=== PATIENT | female | born 1995 | race Caucasian/White ===

== ENCOUNTER → 2017-08-04 08:40 | Outpatient (CLI) | payer SELFPAY ==
--- NOTE | 2017-08-04 08:52 | RAD_ITS ---
STUDY: X-RAY - ESOPHAGUS (BARIUM SWALLOW) WITH FLUOROSCOPY REASON FOR EXAM: Female, 22 years old. Midesophageal tightness and pain. TECHNIQUE: 14 view(s) of the esophagus were obtained following swallowing of barium. FLUOROSCOPY TIME (if supplied): (0:27) minutes/seconds COMPARISON: None. FINDINGS: There is no demonstrated esophageal foreign body. There is no demonstrated stricture or mucosal abnormality. Normal gastroesophageal junction, without a demonstrated hiatal hernia. The patient ingested a 12 mm tablet of barium without any difficulty. Normal visualized aortic arch and descending thoracic aorta. Normal visualized pulmonary parenchyma. Normal visualized osseous structures of the thorax. RAD/Esophagus Only IMPRESSION: Normal plain film x-ray examination (barium swallow) of the esophagus. Electronically Signed: Remy Koenig MD at 9:46 EDT Tel [phone], Service support ,
== END ==
PROVIDERS: Visit Provider Otolaryngology
DX: R13.10 Dysphagia, unspecified (principal)
CPT/HCPCS: 74220

== ENCOUNTER → 2018-07-03 | Outpatient (CLI) | payer OTHER, SELFPAY ==
[2018-07-03 13:58] VITALS: BMI 21.0
[2018-07-03 15:18] LABS: Absolute Lymphocyte Count 1.81 X10^3/ul (0.83-4.51); Absolute Neutrophil Count 4.2 X10^3/uL (2.0-7.7); Eosinophil# 0.01 X10^3/uL; Eosinophils% 0.2 % (0-5); Hemoglobin 12.2 g/dl (12.0-15.0); Lymphocyte # 1.81 X10^3/ul (4.0); Lymphocyte % 27.4 % (19-41); Mean Corp Hgb Conc 34.9 g/gl (32-36); Mean Corpuscular Hgb 31.7 pg (27.0-32.0); Mean Corpuscular Volume 90.9 fL (81-99); Mean Platelet Vol. 10.2 fl (6.2-12.0); Monocyte# 0.58 X10^3/uL; Monocyte% 8.8 % (0-10); Neutrophil # 4.19 X10^3/uL (2.7-7.7); Neutrophil % 63.4 % (47-70); Platelet Count 215 K/mm3 (150-450); RBC Distribution Width CV 12.5 % (11.6-14.6); RBC Distribution Width SD 41.1 fl (35.1-43.9); Red Blood Count 3.85 M/mm3 (4.2-5.4); White Blood Count 6.6 K/mm3 (4.4-11.0)
[2018-07-03 15:33] LABS: POSITIVE COUNT NO; POSITIVE DIFFERENTIAL NO; POSITIVE MORPHOLOGY NO
[2018-07-03 16:30] LABS: HIV - WCH Non-Reactive (Nonreactive); Rubella IgG 152.1 IU/mL
[2018-07-03 20:35] LABS: Chlamydia Trachomatis by PCR Negative (Negative); Neisserai gonorrhoeae by PCR Negative (Negative); Probe Check PASS; Sample Adequacy Control PASS; Specimen Processing Control PASS
[2018-07-05 15:59] LABS: HEPATITIS B SURFACE AG Negative (Negative)
[2018-07-06 04:56] LABS: Rapid Plasmin Reagin (RPR) NONREACTIVE (NONREACTIVE)
[2018-07-06 11:29] LABS: HPV Reflexed? NOT INDICATED
== END | disposition home or self-care (01) ==
PROVIDERS: Nurse Practitioner Women's Health; Visit Provider Obstetrics & Gynecology
DX: Z34.90 Encounter for supervision of normal pregnancy, unspecified, unspecified trimester (principal)
CPT/HCPCS: 36415; 85025; 86592; 86703; 86762; 86850; 86900; 87086; 87340; 87491; 87591; 87624; 88175; G0145

== ENCOUNTER → 2018-09-03 | Outpatient (CLI) | payer OTHER, SELFPAY ==
[2018-08-07 08:50] VITALS: BMI 21.0
--- NOTE | 2018-09-03 13:35 | US_ITS ---
STUDY: SECOND AND THIRD TRIMESTER OBSTETRICAL ULTRASOUND REASON FOR EXAM: Female, 23 years old. Routine survey. LMP: April 10, 2018. TECHNIQUE: Transabdominal TECHNICAL QUALITY: Adequate. PRIOR ULTRASOUND: None. FINDINGS: There is a single intrauterine fetus. The fetus is in a cephalic presentation. There is demonstrated cardiac activity with a heart rate of 147 bpm. There is a normal amniotic fluid volume. The largest amniotic fluid pocket measures 9.7 cm x 2.9 cm. The amniotic fluid index (JESUS) is within normal limits. The placenta is posterior in location and is not low lying. There are Grade 0 placental changes. The cervix measures 3.5 cm in length. The bilateral adnexal regions are normal. BIOMETRY: BPD: 4.65 cm: 20 weeks, 1 days HC: 17.83 cm: 20 weeks, 3 days AC: 15.74 cm: 21 weeks, 0 days FL: 3.32 cm: 20 weeks, 3 days CI: 75% FL/BPD: 71% FL/HC: FL/AC: 21% HC/AC: 1.13 age by current US: 20 weeks, 4 days. GARRICK by current US: January 17, 2019. Estimated weight: 365 grams, +/- 53 grams, 31 %. Age by LMP: 20 weeks, 6 days. GARRICK by LMP: January 15, 2019. ANATOMY: Gender: Male Cranium: Normal lateral ventricles. Normal choroid plexus. Normal cerebellum. Normal cisterna magna. Normal face, nose and lips. Chest: Normal 4-chamber heart. Abdomen/Pelvis: Normal diaphragm. Normal stomach. Normal abdominal wall. Normal cord insertion. Normal 3 vessel cord. Normal kidneys. Normal bladder. Spine: Normal cervical spine. Normal thoracic spine. Normal lumbar spine. Normal sacrum. Extremities: Normal bilateral upper extremities. Normal bilateral lower extremities. US/OB Anatomy Scan IMPRESSION: Single live intrauterine gestation with a mean gestational age of 20 weeks and 4 days. Electronically Signed: Remy Koenig, at 11:43 EDT , Service support ,
== END | disposition home or self-care (01) ==
PROVIDERS: Referring Provider Obstetrics & Gynecology; Visit Provider Obstetrics & Gynecology
DX: Z34.90 Encounter for supervision of normal pregnancy, unspecified, unspecified trimester (principal)
CPT/HCPCS: 76805

== ENCOUNTER → 2018-10-24 | Outpatient (CLI) | payer OTHER, SELFPAY ==
[2018-10-24 08:51] VITALS: BMI 21.0
[2018-10-24 09:41] LABS: Absolute Neutrophil Count 6.2 X10^3/uL (2.0-7.7); Basophil# 0.02 X10^3/uL; Basophil% 0.2 % (0-1); Eosinophil# 0.04 X10^3/uL; Eosinophils% 0.4 % (0-5); Hematocrit 32.7 % (37-47); Hemoglobin 11.1 g/dL (12.0-15.0); Lymphocyte % 21.1 % (19-41); Mean Corp Hgb Conc 33.9 g/dL (32-36); Mean Corpuscular Hgb 33.2 pg (27.0-32.0); Mean Corpuscular Volume 97.9 fL (81-99); Mean Platelet Vol. 9.5 fl (6.2-12.0); Monocyte% 8.9 % (0-10); NRBC Flagged by Analyzer 0 % (0-5); Neutrophil # 6.17 X10^3/uL (2.7-7.7); Neutrophil % 68.7 % (47-70); Platelet Count 195 K/mm3 (150-450); RBC Distribution Width CV 12.3 % (11.6-14.6); RBC Distribution Width SD 44.5 fl (35.1-43.9); Red Blood Count 3.34 M/mm3 (4.2-5.4)
[2018-10-24 09:52] LABS: Glucose Challenge Gest 1H 50g 90 mg/dL (70-140)
== END | disposition home or self-care (01) ==
LOC: PAVLAB 08:56
PROVIDERS: Nurse Practitioner Women's Health; Referring Provider Obstetrics & Gynecology; Visit Provider Obstetrics & Gynecology
DX: Z34.00 Encounter for supervision of normal first pregnancy, unspecified trimester (principal)
CPT/HCPCS: 36415; 82950; 85025

== ENCOUNTER → 2018-12-19 14:29 | Outpatient (CLI) | payer OTHER, SELFPAY ==
[2018-12-19 12:31] VITALS: BMI 26.2
== END ==
PROVIDERS: Family Provider Family Medicine; PCP Family Medicine; Visit Provider Obstetrics & Gynecology
DX: Z34.93 Encounter for supervision of normal pregnancy, unspecified, third trimester (principal); Z3A.36 36 weeks gestation of pregnancy
CPT/HCPCS: 87081

== ENCOUNTER 2019-01-13 17:45 | Inpatient (IN) | payer SELFPAY ==
[2018-11-27 09:44] VITALS: BMI 21.0
[2019-01-10 11:21] VITALS: BMI 26.2
[2019-01-13 17:17] VITALS: BMI 27.8
[2019-01-13 17:45] LABS: ROM Internal Control Test YES-OK TO RESULT pt. (Internal QC)
[2019-01-13 17:47] LABS: ROM Patient Test POSITIVE (Negative)
[2019-01-13] MEDS: Lactated Ringers 1,000 ML 50 ML IV (18:14)
[2019-01-13] MEDS: Oxytocin 30 units/NS 500 ml 30 UNITS/500 ML IV.SOLN IV (18:36)
[2019-01-13 18:52] LABS: Absolute Lymphocyte Count 3.06 X10^3/uL (0.83-4.51); Absolute Neutrophil Count 5.3 X10^3/uL (2.0-7.7); Basophil# 0.02 X10^3/uL; Basophil% 0.2 % (0-1); Eosinophil# 0.03 X10^3/uL; Eosinophils% 0.3 % (0-5); Hematocrit 36.8 % (37-47); Hemoglobin 12.3 g/dL (12.0-15.0); Lymphocyte # 3.06 X10^3/ul (4.0); Lymphocyte % 32.8 % (19-41); Mean Corp Hgb Conc 33.4 g/dL (32-36); Mean Corpuscular Hgb 31.5 pg (27.0-32.0); Mean Corpuscular Volume 94.1 fL (81-99); Mean Platelet Vol. 10.8 fl (6.2-12.0); Monocyte# 0.85 X10^3/uL; Monocyte% 9.1 % (0-10); NRBC Flagged by Analyzer 0 % (0-5); Neutrophil # 5.32 X10^3/uL (2.7-7.7); Platelet Count 274 K/mm3 (150-450); RBC Distribution Width CV 13.2 % (11.6-14.6); Red Blood Count 3.91 M/mm3 (4.2-5.4); White Blood Count 9.3 K/mm3 (4.4-11.0)
[2019-01-13] MEDS: Lactated Ringers 500 ML 999 ML IV (21:28)
[2019-01-13] MEDS: fentaNYL-bupivacaine (epidural) 100 ML BAG EPIDURAL (22:12)
[2019-01-14] MEDS: Lactated Ringers 1,000 ML 200 ML IV (01:42)
[2019-01-14] MEDS: fentaNYL-bupivacaine (epidural) 100 ML BAG EPIDURAL (02:54)
[2019-01-14] MEDS: Oxytocin 30 units/NS 500 ml 30 UNITS/500 ML IV.SOLN 334 UNITS IV (06:21)
--- NOTE | 2019-01-14 07:31 | HP.PCM_ITS ---
- Problem List (1) Family history of cleft lip Status: Acute (2) Family history of clubfoot Status: Acute (3) Status: Acute Qualifiers: Comment: Declines carrier and genetic and ntd screen. nl anatomy. (4) Supervision of normal first Status: Acute Qualifiers: Comment: PRR GARRICK 01/15/19 boy Dominick Spouse: Natalie History Date of Admission: 01/13/19 Final GARRICK: 01/15/19 Gestational age: 39 Weeks and 6 Days History of this : This is a 23 year-old, , at 39 weeks gestational age presents with SROM clear fluid for over 24 hours with minimal contractions. no vb good fm Allergies No Known Allergies Allergy (Verified 01/10/19 11:21) Home Medications: Home Medications vitamin#30 30 mg iron-10 mg iron-folic acid 1 mg-omg3 capsule 1 cap PO DAILY cap 11/27/18 Smoking Status: Never smoker Alcohol: None Number of Fetus(es): 1 NST - FHR Rate Baby A Baseline: 140 Variability:: Moderate Decelerations:: None NST Reactive:: Yes FHR Category:: Category I Uterine Activity:: irregular History Past Pregnancies: Past Pregnancies Delivery Date Name GA/Weeks Outcome Route Weight Gender Labor Length Anesthesia Delivery Location Provider FOB Labs: Mom's Labs & Results 01/13/19 01/13/19 01/13/19 17:15 18:14 18:14 WBC 9.3 RBC 3.91 L Hgb 12.3 Hct 36.8 L MCV 94.1 MCH 31.5 MCHC 33.4 RDW Std Deviation 45.0 H RDW Coeff of Jose 13.2 Plt Count 274 MPV 10.8 Immature Gran % (Auto) 0.600 Neut % (Auto) 57.0 Lymph % (Auto) 32.8 Wallace % (Auto) 9.1 Eos % (Auto) 0.3 Baso % (Auto) 0.2 Absolute Neuts (auto) 5.3 Absolute Lymphs (auto) 3.06 Nucleated RBC % 0 Vag Amniotic Fld Detect POSITIVE H Blood Type O POSITIVE Antibody Screen NEGATIVE Course Did the patient receive Yes care? Labs Blood Type: O RH: POSITIVE RPR/VDRL/Syphilis Nonreactive Rubella status Immune HbSAg Negative Date Done: 07/03/18 Chlamydia Negative Gonorrhea Negative HIV/AIDS Non-Reactive Group B Strep: Negative Current Obstetrical History Gestational Diabetes No Incompetent Cervix No Infertility No IUGR No Macrosomia No Hypertension/Pre-eclampsia No Placenta Previa/Abruption No PTL/PROM No Uterine anomaly No Oligohydramnios No Polyhydramnios No Multiple gestation No Past Medical History Asthma No Diabetes No Hypertension No Heart disease No Mitral valve prolapse No Neurologic/Seizure disorder/ No Migraines Kidney disease No Liver disease No Varicosities No Clotting disorders/Hx of DVT No Thyroid Dysfunction No Other medical diseases No Psychiatric disorders No Major trauma No Abnormal PAP smear No Sleep apnea No Mammogram in the last 2 years No Social History Marital Status: Alleged father natalie Hx Smoking No Smoking Status Never smoker Expected Delivery Method: Spontaneous Vaginal Review of Systems Constitutional: Denies: Fever, Malaise Eyes: Denies: Blurred vision, Vision Change HEENT: Denies: Head Aches, Visual Changes Cardiovascular: Denies: Chest Pain, Palpitations Respiratory: Denies: Cough, Shortness of Breath, Wheezing Gastrointestinal: Denies: Abdominal Pain, Diarrhea, Nausea, Vomiting Genitourinary: Denies: Dysuria, Hematuria Musculoskeletal: Denies: Joint Pain, Muscle pain Skin: Denies: Lesions, Rash Neurological: Denies: Blurred vision, Focal weakness, Headaches Psychiatric: Denies: Anxiety, Depression Endocrine: Denies: Heat/ Cold Intolerance Hematologic/ Lymphatic: Denies: Easy Bruising, Easy Bleeding Physical Exam General: Alert, Cooperative, No apparent distress HEENT: Atraumatic, Normocephalic. Negative for: Thyromegaly, Lymphadenopathy Cardiovascular: Regular rate Lungs: Normal air movement Abdomen: Soft, Non Tender, Gravid Neurological: Deep Tendon Reflexes 2+/4 and Symmetrical, Neuro grossly intact. Negative for: Clonus [employer]IVE: Normal external genitalia. Negative for: Vulvar lesions Estimated gestational size: Appropriate for gestational size Presentation: Cephalic Assessment/Plan All Active Problems (Last Reviewed 01/10/19 @ 11:21 by Sharon Hunter) Family history of cleft lip (Acute) Family history of clubfoot (Acute) (Acute) Supervision of normal first (Acute) This is a 23 year-old, ] at 39 weeks gestational age presents with PROM plan pit augmentation epi if desired no antibiotics unless signs of chorioamnionitis present. gbs neg
[2019-01-14] MEDS: Naproxen 250 MG Tablet 500 MG PO ×2 (08:16→19:35)
[2019-01-14 12:45] VITALS: BP 111/62; PULSE 92; RESP 16; TEMP 36.6
[2019-01-14] MEDS: Acetaminophen 500 MG Tablet 1000 MG PO (14:25)
[2019-01-14 16:54] VITALS: BP 109/69; PULSE 88; RESP 16; TEMP 36.9
[2019-01-14 19:37] VITALS: BP 112/61; PULSE 94; RESP 18; TEMP 36.9; O2SAT 97
[2019-01-14 23:36] VITALS: BP 107/63; PULSE 80; RESP 18; TEMP 36.6
[2019-01-14] MEDS: Dibucaine 30 GM Tube 1 APPLIC TOPICAL (23:42)
[2019-01-15 03:27] VITALS: BP 112/64; PULSE 82; RESP 16; TEMP 36.8
--- NOTE | 2019-01-15 05:21 | PCM.OPRPT ---
Problem List (1) Family history of cleft lip Status: Acute (2) Family history of clubfoot Status: Acute (3) Status: Acute Qualifiers: Comment: Declines carrier and genetic and ntd screen. nl anatomy. (4) Supervision of normal first Status: Acute Qualifiers: Comment: PRR GARRICK 01/15/19 [place] Spouse: Jonas Vaginal Delivery Maternal Presentation: Active Labor, Spontaneous Rupture of Membranes 39 srom clear fluid Method of Induction: Pitocin Amniotic Membrane Rupture Type: Spontaneous Amniotic Fluid Description: Clear Final GARRICK: 01/14/19 Gestational age: 39w6d Date of Procedure: 01/15/19 Pre-Operative Diagnosis: ial recurrent variables Post-Operative Diagnosis: same Surgery/ Procedure Performed: Vacuum Assisted Vaginal Delivery Type of Anesthesia: Epidural Description of Procedure: Vacuum was applied and the +3 station and the head was delivered easily with gentle guidance using the vacuum and delivered atraumatically followed by the anterior and posterior shoulders the rest the infant delivered was placed on maternal abdomen. Delayed cord clamping was employed and then the cord was clamped and cut. Placenta delivered spontaneously immediately following. No significant lacerations were noted. Presentation: HOMA Placental Delivery Description: Spontaneous Placenta Disposition: [facility] Cord Vessel Description: 3 Vessels Cord Entanglement: None Estimated Blood Loss: 200 Infant A gender: Male Episiotomy Description: None Laceration: None Medications given after delivery: IV Pitocin Complications: None Multi Select Codes - Urinary/Genital Urinary/Genital CPT Codes: 09516 Vaginal Delivery global pkg - vacuum delivery
[2019-01-15] MEDS: Naproxen 250 MG Tablet 500 MG PO (06:56)
--- NOTE | 2019-01-15 07:40 | PCM.PN.OB ---
Subjective: doing well no complaints pain controlled no CP SOB N V ambulating well tolerating po lochia moderate, going well - Physical Exam Vitals/I&O's: Vital Signs Temp Pulse Resp BP Pulse Ox 98.3 F 82 16 112/64 97 01/15/19 03:27 01/15/19 03:27 01/15/19 03:27 01/15/19 03:27 01/14/19 19:37 Oxygen Delivery Method Room Air Weight: 152 lb Body Mass Index (BMI) 27.8 Intake and Output for Last 24 Hours 01/13/19 01/14/19 01/15/19 23:59 23:59 23:59 Intake Total 779.17 / 779.17 2210.64 / 2210.64 Output Total 1500 / 1500 Balance 779.17 / 779.17 710.64 / 710.64 General: Alert, Oriented x3 Abdomen: Soft, Non Tender, Non-Distended, - - FF below U Current Medications Acetaminophen (Tylenol) 1,000 mg PO Q8H PRN PRN PRN Reason: Pain Score 1-310 Last Admin: 01/14/19 14:25 Dose: 1,000 mg Documented by: Bisacodyl (Dulcolax) 10 mg RECTAL UD PRN PRN Reason: If no BM Dibucaine (Dibucaine) 1 applic TOPICAL TID PRN PRN; Protocol PRN Reason: Discomfort Last Admin: 01/14/19 23:42 Dose: 1 applic Documented by: Hydrocortisone (Hytone) 1 applic TOPICAL TID PRN PRN; Protocol PRN Reason: Discomfort Methylergonovine Maleate (Methergine) 0.2 mg IM X1 PRN PRN Reason: Excess bleeding/uterine atony Naproxen (Naprosyn) 500 mg PO Q8H PRN PRN PRN Reason: Pain Score 1-3/10 Last Admin: 01/15/19 06:56 Dose: 500 mg Documented by: Ondansetron HCl (Zofran) 4 mg IV Q4H PRN PRN PRN Reason: Nausea Oxycodone HCl (Oxyir) 5 - 10 mg PO Q4H PRN PRN PRN Reason: Pain Score 4-10/10 Senna/Docusate Sodium (Senokot-S, Cynthia-Colace) 1 - 2 tablet PO DAILY PRN PRN PRN Reason: Constipation Simethicone (Mylicon) 80 mg PO PCHS PRN PRN Reason: Indigestion/Stomach pain Sodium Chloride () 5 - 15 ml IV UD PRN PRN Reason: SALINE FLUSH Medical Necessity - Tobacco Use Smoking Status: Never smoker Assessment/Plan All Active Problems (Last Reviewed 01/10/19 @ 11:21 by Sharon Hunter) Family history of cleft lip (Acute) Family history of clubfoot (Acute) (Acute) Supervision of normal first (Acute) s/p PPD # 1 1. routine post delivery care 2. breast feeding- support given 3. rh positive 4. rubella immune 5. Enc stool softener 6. home today
--- NOTE | 2019-01-15 07:42 | DCINST_ITS ---
Additional Instructions: If you experience any of the following, contact your healthcare provider. * Bleeding that soaks a pad every hour for 2 hours * Fever 100.4 or higher * Unrelieved incision or abdominal pain * Swelling, redness, discharge or bleeding from your incision or episiotomy site * Your incision begins to separate * Problems urinating (including inability to urinate or burning while urinating). * Visual changes * Severe headache * Flu-like symptoms * Pain or redness in one of both of your breasts * Pain, warmth, tenderness or swelling in your legs, especially the calf area * Frequent nausea and vomiting * Symptoms of depression or anxiety If you experience any of the following, call 911 or go to the nearest Emergency Room. * Chest pain * Problems breathing * Seizure activity * Partial or complete paralysis of a body part, slurred speech, weakness or drooping of the face, or a sudden inability to walk or hold your balance Allergies/Adverse Reactions: Allergies No Known Allergies Allergy (Verified 01/10/19 11:21) Medications to take at Discharge vitamin#30 30 mg iron-10 mg iron-folic acid 1 mg-omg3 capsule 1 cap PO DAILY cap 11/27/18 Primary Care Physician: Paul Muñoz MD [Primary Care Provider] - Test Results: Test results from this visit will be discussed in further detail at your follow- up appointment, if applicable.
--- NOTE | 2019-01-15 07:42 | PCM.DCVAG ---
Additional Instructions: If you experience any of the following, contact your healthcare provider. Bleeding that soaks a pad every hour for 2 hours Fever 100.4 or higher Unrelieved incision or abdominal pain Swelling, redness, discharge or bleeding from your incision or episiotomy site Your incision begins to separate Problems urinating (including inability to urinate or burning while urinating). Visual changes Severe headache Flu-like symptoms Pain or redness in one of both of your breasts Pain, warmth, tenderness or swelling in your legs, especially the calf area Frequent nausea and vomiting Symptoms of depression or anxiety If you experience any of the following, call 911 or go to the nearest Emergency Room. Chest pain Problems breathing Seizure activity Partial or complete paralysis of a body part, slurred speech, weakness or drooping of the face, or a sudden inability to walk or hold your balance Allergies/Adverse Reactions: Allergies No Known Allergies Allergy (Verified 01/10/19 11:21) Medications to take at Discharge vitamin#30 30 mg iron-10 mg iron-folic acid 1 mg-omg3 capsule 1 cap PO DAILY cap 11/27/18 Primary Care Physician: Paul Muñoz MD [Primary Care Provider] - Test Results: Test results from this visit will be discussed in further detail at your follow-up appointment, if applicable.
[2019-01-15 08:00] VITALS: BP 110/49; PULSE 73; RESP 18; TEMP 36.4
[2019-01-15] MEDS: Senna/Docusate Sodium 1 Tablet PO (11:07)
== END 2019-01-15 13:45 | disposition home or self-care (01) | DRG 807 ==
LOC: WP 17:54 → WPOUT 17:54
PROVIDERS: Admitting Provider Obstetrics & Gynecology; Family Provider Family Medicine; PCP Family Medicine; Visit Provider Obstetrics & Gynecology
DX: O42.12 Full-term premature rupture of membranes, onset of labor more than 24 hours following rupture (principal); Z37.0 Single live birth; Z3A.39 39 weeks gestation of pregnancy
CPT/HCPCS: 59025; 59050; 84112; 85025; 86850; 86900; 86901; 99218; J7120; G0378

== ENCOUNTER → 2020-06-11 15:00 | Outpatient (CLI) | payer OTHER, SELFPAY ==
[2020-06-11 14:20] VITALS: BMI 24.7
[2020-06-11 15:20] LABS: Absolute Lymphocyte Count 2.01 X10^3/uL (0.83-4.51); Absolute Neutrophil Count 4.8 X10^3/uL (2.0-7.7); Basophil# 0.02 X10^3/uL; Basophil% 0.3 % (0-1); Eosinophil# 0.03 X10^3/uL; Eosinophils% 0.4 % (0-5); Hematocrit 36.6 % (37-47); Hemoglobin 12.8 g/dL (12.0-15.0); Lymphocyte # 2.01 X10^3/ul (4.0); Lymphocyte % 27.3 % (19-41); Mean Corpuscular Hgb 32.4 pg (27.0-32.0); Mean Corpuscular Volume 92.7 fL (81-99); Mean Platelet Vol. 10.4 fl (6.2-12.0); Monocyte# 0.48 X10^3/uL; Monocyte% 6.5 % (0-10); NRBC Flagged by Analyzer 0 % (0-5); Neutrophil % 65.1 % (47-70); Platelet Count 233 K/mm3 (150-450); RBC Distribution Width CV 12.2 % (11.6-14.6); RBC Distribution Width SD 41.9 fl (35.1-43.9); Red Blood Count 3.95 M/mm3 (4.2-5.4); White Blood Count 7.4 K/mm3 (4.4-11.0)
[2020-06-12 08:57] LABS: Rubella IgG Reactive (Nonreactive)
== END ==
PROVIDERS: Referring Provider Obstetrics & Gynecology; Visit Provider Obstetrics & Gynecology
DX: Z34.82 Encounter for supervision of other normal pregnancy, second trimester (principal)
CPT/HCPCS: 36415; 85025; 86762; 86850; 86900; 86901; 87086; 87088

== ENCOUNTER → 2020-07-16 14:47 | Outpatient (CLI) | payer SELFPAY, OTHER ==
[2020-06-11 14:20] VITALS: BMI 24.7
[2020-07-16 13:49] VITALS: BMI 25.8
--- NOTE | 2020-07-16 14:49 | US_ITS ---
STUDY: SECOND AND THIRD TRIMESTER OBSTETRICAL ULTRASOUND REASON FOR EXAM: Female, 25 years old ANATOMY TECHNIQUE: Transabdominal and Transvaginal PRIOR ULTRASOUND: None. FINDINGS: There is a single intrauterine fetus. The fetus is in a variable presentation. There is demonstrated cardiac activity with a heart rate of 169 bpm. There is a normal amniotic fluid volume. The largest amniotic fluid pocket measures 3.8 cm. The placenta is anterior fundal and not low-lying. There are Grade 0 placental changes. There is a focal inward bulging along the posterior wall of the uterus. No connecting vessels are seen from the placenta to this area. The cervix measures 3.8 cm in length and closed. The bilateral adnexal regions are normal. BPD: 4.4 cm = 19 weeks, 2 day(s) HC: 17.2 cm = 19 weeks, 5 day(s) AC: 15.1 cm = 20 weeks, 2 day(s) FL: 2.9cm = 18 weeks, 6 day(s) EGA by ultrasound: 19 weeks 3 day(s) GARRICK by ultrasound: 12/07/2020 Estimated weight: 307 grams Weight percentile: 68% ANATOMY: Gender: Male Cranium: Normal lateral ventricles. Normal choroid plexus. Normal cerebellum. Normal cisterna magna. Normal face, nose and lips. Chest: Normal 4-chamber heart. Abdomen/Pelvis: Normal diaphragm. Normal stomach. Normal abdominal wall. Normal cord insertion. Normal 3 vessel cord. Normal kidneys. Normal bladder. Spine: Normal cervical spine. Normal thoracic spine. Normal lumbar spine. Normal sacrum. Extremities: Normal bilateral upper extremities. Normal bilateral lower extremities. US/OB Anatomy Scan IMPRESSION: Living intrauterine with estimated gestational age of 19 weeks and 3 days. There is a focal inward bulging along the posterior wall of the uterus. This most likely represents a myometrial contraction, less likely a succenturiate lobe. Recommend close attention on follow-up. Electronically Signed: Roberto Carlos Evans MD at 22:40 EDT Tel , Service support ,
[2020-07-16 19:10] LABS: Chlamydia Trachomatis by PCR Negative (Negative); Neisserai gonorrhoeae by PCR Negative (Negative); Probe Check PASS; Sample Adequacy Control PASS; Specimen Processing Control PASS
== END ==
PROVIDERS: Referring Provider Nurse Practitioner Women's Health; Visit Provider Nurse Practitioner Women's Health
DX: Z34.92 Encounter for supervision of normal pregnancy, unspecified, second trimester (principal)
CPT/HCPCS: 76805; 76817; 87491; 87591

== ENCOUNTER → 2020-08-20 13:32 | Outpatient (CLI) | payer OTHER, SELFPAY ==
[2020-07-21 09:42] VITALS: BMI 25.8
--- NOTE | 2020-08-20 13:34 | US_ITS ---
STUDY: SECOND AND THIRD TRIMESTER OBSTETRICAL ULTRASOUND - LIMITED REASON FOR EXAM: Female, 25 years old supervision of normal - possible bi-lobed placenta LMP: 03/01/2020 PRIOR ULTRASOUND: 07/16/2020 TECHNIQUE: Transabdominal TECHNICAL QUALITY: Adequate. FINDINGS: There is a single intrauterine fetus. The fetus is in a breech presentation. There is demonstrated cardiac activity with a heart rate of 153 bpm. There is a normal amniotic fluid volume. The largest amniotic fluid pocket measures 5.1 cm. The amniotic fluid index (JESUS) is cm. The placenta is anterior in location and is not low lying. There are Grade 0 placental changes. The cervix measures 4.2 cm in length. Age by LMP: 24 weeks, 4 days. GARRICK by LMP: 12/06/2020. US/OB Limited (No Biometrics) IMPRESSION: Living intrauterine of 24 weeks 4 days as described above. Normal anterior placenta. Electronically Signed: Papo Murray MD at 8:07 EDT Tel , Service support ,
== END ==
PROVIDERS: Referring Provider Obstetrics & Gynecology; Visit Provider Obstetrics & Gynecology
DX: O43.102 Malformation of placenta, unspecified, second trimester (principal); Z3A.24 24 weeks gestation of pregnancy
CPT/HCPCS: 76815

== ENCOUNTER → 2020-09-22 14:08 | Outpatient (CLI) | payer OTHER, SELFPAY ==
[2020-08-20 14:38] VITALS: BMI 26.5
[2020-09-22 14:21] LABS: Absolute Lymphocyte Count 2.03 X10^3/uL (0.83-4.51); Absolute Neutrophil Count 6.1 X10^3/uL (2.0-7.7); Basophil# 0.01 X10^3/uL; Basophil% 0.1 % (0-1); Eosinophil# 0.05 X10^3/uL; Eosinophils% 0.6 % (0-5); Hematocrit 32.6 % (37-47); Hemoglobin 10.8 g/dL (12.0-15.0); Lymphocyte # 2.03 X10^3/ul (0.83-4.51); Lymphocyte % 22.4 % (19-41); Mean Corp Hgb Conc 33.1 g/dL (32-36); Mean Corpuscular Hgb 30.9 pg (27.0-32.0); Mean Corpuscular Volume 93.4 fL (81-99); Mean Platelet Vol. 9.5 fl (6.2-12.0); Monocyte# 0.78 X10^3/uL; Monocyte% 8.6 % (0-10); NRBC Flagged by Analyzer 0 % (0-5); Neutrophil # 6.13 X10^3/uL (2.7-7.7); Neutrophil % 67.7 % (47-70); Platelet Count 234 K/mm3 (150-450); RBC Distribution Width CV 12.3 % (11.6-14.6); RBC Distribution Width SD 42.2 fl (35.1-43.9); Red Blood Count 3.49 M/mm3 (4.2-5.4); White Blood Count 9.1 K/mm3 (4.4-11.0)
[2020-09-22 14:30] LABS: Glucose Challenge Gest 1H 50g 90 mg/dL (70-140)
== END ==
PROVIDERS: Referring Provider Nurse Practitioner Women's Health; Visit Provider Nurse Practitioner Women's Health
DX: Z34.82 Encounter for supervision of other normal pregnancy, second trimester (principal); Z13.1 Encounter for screening for diabetes mellitus
CPT/HCPCS: 36415; 82950; 85025

== ENCOUNTER → 2020-11-12 | Outpatient (CLI) | payer OTHER, SELFPAY | END | disposition home or self-care (01) | LOC: LABSPEC 15:31 | PROVIDERS: Visit Provider Obstetrics & Gynecology | DX: Z34.82 Encounter for supervision of other normal pregnancy, second trimester (principal) | CPT/HCPCS: 87081 ==

== ENCOUNTER → 2020-11-19 | Outpatient (CLI) | payer OTHER, SELFPAY ==
[2020-11-19 16:08] LABS: ROM Internal Control Test YES-OK TO RESULT pt. (Internal QC); ROM Patient Test Negative (Negative)
== END | disposition home or self-care (01) ==
LOC: LABSPEC 15:17
PROVIDERS: Referring Provider Obstetrics & Gynecology; Visit Provider Obstetrics & Gynecology
DX: O26.899 Other specified pregnancy related conditions, unspecified trimester (principal); N89.8 Other specified noninflammatory disorders of vagina; Z3A.00 Weeks of gestation of pregnancy not specified
CPT/HCPCS: 84112

== ENCOUNTER 2020-11-28 10:50 | Outpatient (CLI) | payer OTHER, SELFPAY ==
[2020-11-28 11:06] VITALS: BP 113/74; PULSE 79; TEMP 36.2; O2SAT 99
[2020-11-28 11:20] VITALS: BMI 29.0
--- NOTE | 2020-12-02 08:36 | OB.TRI.PN ---
Progress Notes Date of Service: 11/28/20 Progress Note: Patient presents for triage evaluation secondary to contractions. Contractions decreased on arrival. Cervix unchanged from prior exam FHT: Moderate variability reactive no decelerations category I tracing [place]: q10 min Contractions Assessment and plan: Reactive NST, reassuring maternal and status patient discharged to home to follow-up at next scheduled visit. See problem list details for additional plan information. Charges/Coding Procedures Urinary/Genital 52xxx-59xxx: [id number] non-stress test Interp
== END 2020-11-28 12:03 | disposition home or self-care (01) ==
LOC: WPOUT 11:10 → WP 11:10
PROVIDERS: Referring Provider Obstetrics & Gynecology; Visit Provider Obstetrics & Gynecology
DX: O62.9 Abnormality of forces of labor, unspecified (principal); Z3A.00 Weeks of gestation of pregnancy not specified
CPT/HCPCS: 59025; 59050; 99218; G0378

== ENCOUNTER 2020-12-01 16:40 | Inpatient (IN) | payer SELFPAY, OTHER ==
[2020-12-01] VITALS (68 sets, daily range): BP systolic 77–151; BP diastolic 39–87; PULSE 58–97; TEMP 36.3–36.9; O2SAT 87–100; BMI 29.1
[2020-12-01 16:53] LABS: ROM Internal Control Test YES-OK TO RESULT pt. (Internal QC)
[2020-12-01 16:54] LABS: ROM Patient Test POSITIVE (Negative)
--- NOTE | 2020-12-01 17:22 | HP.PCM.OB_ITS ---
HPI - General General Date of Admission: 12/01/20 HPI Narrative KAUSHAL HUGGINS, is a 25 F who presents IAL with SROM clear fluid, regualr ctx and 6-7 cm dilated. she thinks she ruptured last night and just now came in, no infection signs or symptoms.. Maternal Data Information GARRICK Calculator Estimated Delivery Date Method Current WG Current Estimate 12/06/20 LMP (Certain) 39w 2d Other Estimates 12/03/20 Ultrasound #1 39w 5d PFSH PFSH Home Medications vitamin#30 30 mg iron-10 mg iron-folic acid 1 mg-omg3 capsule 1 cap PO DAILY cap 11/27/18 [History Last Taken 11/30/20 10:00] Allergy/AdvReac Type Severity Reaction Status Date / Time No Known Allergies Allergy Verified 11/28/20 11:13 Family History (Updated 12/01/20 @ 16:55 by Gertrude Moe) Father Club foot Brother Cleft lip Social History adopted: No household members: spouse housing: house number of children: 0 current occupational status: unemployed sexually active: Yes Smoking Status: Never smoker alcohol intake: never substance use type: does not use what type of physical activity do you participate in: none seatbelt use: always do you feel safe at home: Yes additional social history: Jonas [employer] History 1 Elective abortions 0 Hx Para 1 Spontaneous abortions 0 Hx # Term Pregnancies 1 Ectopic pregnancies 0 Hx # Pregnancies 0 Multiple births 0 # of living children 1 Past Pregnancies Del. Date Name GA/Weeks Outcome Route Bth Weight Gen Labor Lgth Anesthesia Del Locatn Provider FOB 01/15/19 Dominick 39 live - full term vacuum Male epid ural [facility] JEREMIAH Delivery Date: 01/15/19 VAVD variables IAL Kemi Oswald Visit Details Expected Delivery Route/Plan Labor Preferences- CB/BF classes: no labor support person: Jonas labor intervention preferences: open to standard interventions pain management options preferred: desires natural but open to epidural cut cord/dad catch: no - almost passed out last delivery : no PP control planned: condoms discussed possible routes of delivery and associated risks: discussed possible delivery modalities and possible indications for each including R/B/A of , VAVD, FAVD, and CS. questions answered. special requests: [] Plans flu vaccine: declined tdap vaccine: declined rhogam: na LARC form signed: yes Problem list reviewed and updated with the most current plan of care details and appropriate orders placed. Relevant counseling for the gestational age provided. Continue routine care and follow up unless otherwise noted in visit notes/problem list details OB Flowsheet Initial Weight: Not Recorded Date -?-?-?-?-?-?-?-?-?-?-?-?- EGA Weight BP Urine Prot -?-?-?-?-?-?-?-?-?-?-?-?- Glucose FHR FuHt Pres Dilation -?-?-?-?-?-?-?-?-?-?-?-?- Effaced St Visit Note 06/11/20 -?-?-?-?-?-?-?-?-?-?-?-?- 14w 4d 135 lb 4 oz 114/70 -?-?-?-?-?-?-?-?-?-?-?-?- 157 -?-?-?-?-?-?-?-?-?-?-?-?- GP - CRL consist ent with LMP. 07/16/20 -?-?-?-?-?--?-?-?-?-?-?-?- 19w 4d 141 lb 2 oz 112/72 Nega tive -?-?-?-?-?-?-?-?-?-?-?-?- Negative 142 -?-?-?-?-?-?-?-?-?-?-?-?- MH-No VB,LOF. NO FM yet. Anatomy US today. 08/20/20 -?-?-?-?-?-?-?-?-?-?-?-?- 24w 4d 145 lb 108/74 -?-?-?-?-?-?-?-?-?-?-?-?- 155 24 -?-?-?-?-?-?-?-?-?-?-?-?- GP - no LOF, VB, DFM, ctx. GCT next visit. Discussed bilobed placenta. GP - no LOF, VB, DFM, ctx. G CT next visit. Discussed bilobed placenta - awaiting US read 09/22/20 -?-?-?-?-?-?-?-?-?-?-?-?- 29w 2d 149 lb 2 oz 110/64 Nega tive -?-?-?-?-?-?-?-?-?-?-?-?- Negative 137 28 -?-?-?-?-?-?-?-?-?-?-?-?- MH-No VB, LOF. G ood FM. Normal glucose today. Anemia and will start FE 10/28/20 -?-?-?-?-?-?-?-?-?-?-?-?- 34w 3d 150 lb 4 oz 114/78 Nega tive -?-?-?-?-?-?-?-?-?-?-?-?- Negative 130 34 Cephalic -?-?-?-?-?-?-?-?-?-?-?-?- GP - no LOF, VB, DFM, ctx. Discussed labor preferences and routes of delivery. 11/12/20 -?-?-?-?-?-?-?-?-?-?-?-?- 36w 4d 154 lb 6 oz 132/90 Nega tive -?-?-?-?-?-?-?-?-?-?-?-?- Negative 130 36 Cephalic 0 -?-?-?-?-?-?-?-?-?-?-?-?- GP - no LOF, VB, DFM, ctx. GBS done today 11/19/20 -?-?-?-?-?-?-?-?-?-?-?-?- 37w 4d 157 lb 4 oz 122/88 Nega tive -?-?-?-?-?-?-?-?-?-?-?-?- Negative 140 37 Cephalic 0 -?-?-?-?-?-?-?-?-?-?-?-?- GP - no LOF or r egular ctx. Reports DFM over last week - NST done today. Reports concern for small amount of leaking over last week - ROM sent. 11/26/20 -?-?-?-?-?-?-?-?-?-?-?-?- 38w 4d 158 lb 4 oz 116/80 Nega tive -?-?-?-?-?-?-?-?-?-?-?-?- Negative 125 38 Cephalic 3 -?-?-?-?-?-?-?-?-?-?-?-?- 60 -2 GP - no LO F, VB, DFM, ctx. Membranes swept today. 12/01/20 -?-?-?-?-?-?-?-?-?-?-?-?- 39w 2d 159 lb 6 oz 125/77 -?-?-?-?-?-?-?-?-?-?-?-?- -?-?-?-?-?-?-?-?-?-?-?-?- NST FHR Rate Baby A Baseline: 140 Variability:: Moderate Accelerations:: 15 x 15 Decelerations:: None NST Reactive:: Yes FHR Category:: Category I Uterine Activity:: q3-5 ROS Constitutional Constitutional: Reports systems reviewed and no addt'l complaints, except as documented ENT HEENT: Reports systems reviewed and no addt'l complaints, except as documented Cardiovascular Cardiovascular: Reports systems reviewed and no addt'l complaints, except as documented Respiratory/Chest Respiratory/Chest: Reports systems reviewed and no addt'l complaints, except as documented Gastrointestinal Gastrointestinal: Reports systems reviewed and no addt'l complaints, except as documented and nausea; Denies abdominal pain Genitourinary Genitourinary: Reports systems reviewed and no addt'l complaints, except as documented, contractions Details: present and frequency (regular ) and movement Details: present Musculoskeletal Musculoskeletal: Reports systems reviewed and no addt'l complaints, except as documented Integumentary Integumentary: Reports as per HPI Neurologic Neurologic: Reports systems reviewed and no addt'l complaints, except as documented Endocrine Endocrinology: Reports systems reviewed and no addt'l complaints, except as documented Vital Signs Vital Signs Vital Signs: 12/01/20 16:48 Temperature 97.9 F Temperature Source Temporal Pulse Rate 94 Blood Pressure 125/77 H BP Systolic 125 BP Diastolic 77 Pulse Ox 98 Weight Weight: 159 lb 6 oz Body Mass Index (BMI) 29.1 Physical Exam Const alert, oriented x3 and healthy appearing Constitutional Narrative: uncomfortable with contractions HEENT normocephalic and moist oral mucous membranes Head and Scalp: atraumatic Neck full ROM, no lymphadenopathy, supple and thyroid normal General: trachea midline Thyroid: thyroid normal Lymph Lymphatic: no lymphadenopathy noted Chest inspection of chest normal Resp normal respiratory effort Cardio regular rate GI normal to inspection, nondistended, normoactive bowel sounds, soft to palpation and non-tender Inspection: gravid external exam normal Bimanual Exam - Vag & Uterus: uterus non-tender Manual OB Exam: estimated gestational size appropriate, presentation cephalic, dilated, effaced and station Extremity normal to inspection General Extremity: Negative for edema Skin no rashes or lesions noted Neuro deep tendon reflexes 2+ bilaterally Motor Exam: strength 5/5 throughout and clonus absent Psych mental status grossly normal Labs Labs Labs: Blood Type O POSITIVE Antibody Screen NEGATIVE Hct 32.6 % (37-47) L Hgb 10.8 g/dL (12.0-15.0) L Obstetrics US Rubella IgG Antibody Reactive (Nonreactive) Hep Bs Antigen Negative (Negative) HIV 1&2 Antibody Non-Reactive (Nonreactive) C.trachomatis DNA (PCR) Negative (Negative) Glucose 1 Hr 50 gm 90 mg/dL (70-140) Rhogam given: No Assessment & Plan (1) Anemia affecting , antepartum: COMMENT: start FE (2) Placental abnormality: COMMENT: bilobed placenta vs. ISIDRO contraction on anatomy scan. FU US placenta was normal. (3) Supervision of normal : QUALIFIERS: Normal : other normal Trimester: second trimester Qualified Code(s): Z34.82 - Encounter for supervision of other normal , second trimester COMMENT: PRR(limited) GARRICK 12/06/20 CIRILO Tan Spouse: Jonas (4) Family history of cleft lip: COMMENT: patient's brother (5) Family history of clubfoot: COMMENT: patient's father (6) : QUALIFIERS: Weeks of gestation: 38 weeks Qualified Code(s): Z3A.38 - 38 weeks gestation of COMMENT: Declines carrier, genetic, and ntd screen. Limited labs done - T&S, CBC, rubella, urine cx. GBS neg (7) SROM (spontaneous rupture of membranes): (8) Active labor at term: PLAN: Patient presents IAL, plan expectant management for , Pitocin if needed. Pain management: Open to epidural. GBS negative. Management of any complications: None Declined initial STD testing, will draw now I have reviewed the [facility] and made any clinically relevant updates.
[2020-12-01 17:40] LABS: Absolute Lymphocyte Count 2.22 X10^3/uL (0.83-4.51); Absolute Neutrophil Count 4.4 X10^3/uL (2.0-7.7); Basophil# 0.01 X10^3/uL; Basophil% 0.1 % (0-1); Eosinophil# 0.02 X10^3/uL; Eosinophils% 0.3 % (0-5); Hematocrit 32.5 % (37-47); Hemoglobin 10.2 g/dL (12.0-15.0); Lymphocyte # 2.22 X10^3/ul (0.83-4.51); Lymphocyte % 29.9 % (19-41); Mean Corp Hgb Conc 31.4 g/dL (32-36); Mean Corpuscular Hgb 26.8 pg (27.0-32.0); Mean Corpuscular Volume 85.5 fL (81-99); Mean Platelet Vol. 10.8 fl (6.2-12.0); Monocyte% 9.4 % (0-10); NRBC Flagged by Analyzer 0 % (0-5); Neutrophil # 4.42 X10^3/uL (2.7-7.7); Neutrophil % 59.6 % (47-70); Platelet Count 252 K/mm3 (150-450); RBC Distribution Width CV 14.2 % (11.6-14.6); RBC Distribution Width SD 44.1 fl (35.1-43.9); White Blood Count 7.4 K/mm3 (4.4-11.0)
[2020-12-01] MEDS: Lactated Ringers 1,000 ML 200 ML IV (18:00)
[2020-12-01] MEDS: Lactated Ringers 500 ML 999 ML IV ×2 (18:03→19:23)
[2020-12-01 19:08] LABS: Amphetamine Urine VISTA NEGATIVE (<1000 ng/mL); Barbiturate Urine VISTA NEGATIVE (< 200 ng/mL); Benzodiazepine Urine VISTA NEGATIVE (< 200 ng/mL); Cocaine Urine VISTA NEGATIVE (< 300 ng/mL); Ecstacy Urine VISTA NEGATIVE (< 500 ng/mL); Methadone Urine VISTA NEGATIVE (< 300 ng/mL); PCP Urine VISTA NEGATIVE (< 25 ng/mL); THC Urine VISTA NEGATIVE (< 50 ng/mL); Vista UDS pH Range 7
[2020-12-01] MEDS: ePHEDrine Sulfate 50 MG/ML Ampul 10 MG IV (19:22)
[2020-12-01 19:47] LABS: Syphilis Antibodies Non-reactive
[2020-12-01 20:07] LABS: HIV - WCH Non-Reactive (Nonreactive); Hepatitis B Surface Antigen Non-Reactive (Nonreactive); Hepatitis C Antibody Non-Reactive (Nonreactive)
[2020-12-01] MEDS: fentaNYL-bupivacaine (epidural) 100 ML BAG EPIDURAL (20:13)
[2020-12-01] MEDS: Oxytocin 30 units/NS 500 ml 30 UNITS/500 ML IV.SOLN 334 UNITS IV (20:42)
--- NOTE | 2020-12-01 20:55 | EX.PCM.OBRPT ---
Assessment & Plan (1) Active labor at term: (2) SROM (spontaneous rupture of membranes): (3) Anemia affecting , antepartum: COMMENT: start FE (4) Placental abnormality: COMMENT: bilobed placenta vs. ISIDRO contraction on anatomy scan. FU US placenta was normal. (5) Supervision of normal : QUALIFIERS: Normal : other normal Trimester: second trimester Qualified Code(s): Z34.82 - Encounter for supervision of other normal , second trimester COMMENT: PRR(limited) GARRICK 12/06/20 PC Dominick Spouse: Jonas (6) Family history of cleft lip: COMMENT: patient's brother (7) Family history of clubfoot: COMMENT: patient's father (8) : QUALIFIERS: Weeks of gestation: 38 weeks Qualified Code(s): Z3A.38 - 38 weeks gestation of COMMENT: Declines carrier, genetic, and ntd screen. Limited labs done - T&S, CBC, rubella, urine cx. GBS neg (9) Vaginal delivery: COMMENT: 39 SROM boy Danis NUÑEZ Maternal Data Information GARRICK Calculator Estimated Delivery Date Method Current WG Current Estimate 12/06/20 LMP (Certain) 39w 2d Other Estimates 12/03/20 Ultrasound #1 39w 5d Vaginal Delivery Operative Information Pre-Operative Diagnosis: IAL Post-Operative Diagnosis: same Surgery / Procedure Performed: Spontaneous Vaginal Delivery Type of Anesthesia: Epidural Special Medications: none Estimated Blood Loss: 100 Fluids Replaced: crystalloid Findings Description of Procedure: Patient began pushing and delivered the head in the SHASHI presentation. The head was delivered atraumatically and a loose nuchal cord ?1 was identified and the delivered through without complication. The anterior and posterior shoulders delivered without complication followed by the rest of the infant and the infant was placed on the maternal abdomen. Delayed cord clamping was employed for approximately 60 seconds. Cord was clamped and cut and gentle traction was applied to the cord and the placenta delivered spontaneously immediately following it was noted to be intact with three-vessel cord. The perineum and vagina were inspected and noted to have a first-degree perineal laceration that was repaired in the usual fashion with 3-0 Vicryl Rapide. EBL was 100 cc. Patient and tolerated delivery well. Presentation: SHASHI Amniotic Membrane Rupture Type: Spontaneous Amniotic Fluid Description: Clear Placental Delivery Description: Expressed Placenta Disposition: [facility] Cord Vessel Description: 3 Vessels Cord Entanglement: Around neck x 1, loose A Gender: Male Delayed Cord Clamping: Yes Post Vaginal Delivery Medications Given After Delivery: IV Pitocin Episiotomy Description: None Laceration: Perineal Extension/lac and 1st degree Complication Complications: None Procedures Urinary/Genital 52xxx-59xxx: [id number] Vaginal Delivery [facility]
--- NOTE | 2020-12-01 20:58 | PCM.DC ---
Discharge Instructions Diet Discharge Diet: No restrictions Activity Discharge Activity: Return to Normal Activity, May Not Drive (while taking narcotic pain medications.) and May Shower May resume sexual activity in: 4-6 weeks Dressing / Incision Call your doctor if your incision/area has: Continuous Slow Oozing, Sudden Increased Bleeding, Increased Pain/ Swelling, Increased Redness and Foul Smelling Discharge Follow Up Care Please Follow Up With: Diamond Weaver MD When: Call [phone] to make an appointment with your doctor in 6 weeks. If you had elevated blood pressure or 4th degree laceration, you will need to be seen in 2 weeks. Test Results: Test results from this visit will be discussed in further detail at your follow-up appointment, if applicable. Discharge Plan Admission Admit Date/Time: 12/01/20 16:40 Primary Reason for Your Visit: vaginal delivery Attending Provider: Diamond Weaver Primary Care Provider: Care Physician,No Primary Discharge Orders/Prescriptions Prescriptions: Continued vitamin#30 30 mg iron-10 mg iron-folic acid 1 mg-omg3 capsule 30 mg iron-10 mg iron-1 mg capsule 1 cap PO DAILY RF: 0 Referrals / Follow Up: Care Physician,No Primary [Primary Care Provider] - Disposition Disposition (needs filled in before D/C Order can be placed): Home, Self Care
[2020-12-02] VITALS (12 sets, daily range): BP systolic 118–130; BP diastolic 69–79; PULSE 58–72; RESP 16–18; TEMP 36.2–36.8; O2SAT 97–98
[2020-12-02] MEDS: Benzocaine/Lanolin/Aloe Vera 1 SPRAY EACH TOPICAL (00:12)
[2020-12-02] MEDS: Acetaminophen 500 MG Tablet 1000 MG PO ×4 (00:13→20:49)
[2020-12-02] MEDS: Naproxen 500 MG Tablet PO ×3 (02:58→19:06)
--- NOTE | 2020-12-02 08:34 | PCM.PN.OB ---
Subjective Subjective Patient doing well without complaints. Tolerating PO. Ambulating and voiding without difficulty. Feeding well. Denies chest pain, shortness of breath, calf pain/swelling, fevers, chills, lightheadedness. Objective Data Objective Data Vital Signs: Vital Signs Temp Pulse Resp BP Pulse Ox 98.2 F 68 16 120/76 100 12/02/20 07:45 12/02/20 07:45 12/02/20 07:45 12/02/20 07:45 12/01/20 22:34 Oxygen Delivery Method Room Air Weight: 159 lb 6 oz Body Mass Index (BMI) 29.1 Intake & Output: Intake and Output for Last 24 Hours 11/30/20 12/01/20 12/02/20 23:59 23:59 23:59 Intake Total 2033.33 / 2033.33 Output Total 400 / 400 925 / 925 Balance 1633.33 / 1633.33 -925 / -925 Lab / Micro Data Result Diagrams: 12/01/20 17:00 Labs: Laboratory Results - last 24 hr 12/01/20 16:35: Vag Amniotic Fld Detect POSITIVE H 12/01/20 17:00: WBC 7.4, RBC 3.80 L, Hgb 10.2 L, Hct 32.5 L, MCV 85.5, MCH 26.8 L, MCHC 31.4 L, RDW Std Deviation 44.1 H, RDW Coeff of Jose 14.2, Plt Count 252, MPV 10.8, Immature Gran % (Auto) 0.700, Neut % (Auto) 59.6, Lymph % (Auto) 29.9, [place] % (Auto) 9.4, Eos % (Auto) 0.3, Baso % (Auto) 0.1, Absolute Neuts (auto) 4.4, Absolute Lymphs (auto) 2.22, Nucleated RBC % 0 12/01/20 17:00: Blood Type O POSITIVE, Antibody Screen NEGATIVE 12/01/20 17:15: Syphilis Total Ab Non-reactive 12/01/20 17:15: Urine Opiates Screen NEGATIVE, Urine Methadone Screen NEGATIVE, Ur Barbiturates Screen NEGATIVE, Ur Phencyclidine Scrn NEGATIVE, Ur Amphetamines Screen NEGATIVE, U Methamphetamin-MDMA NEGATIVE, U Benzodiazepines Scrn NEGATIVE, Urine Cocaine Screen NEGATIVE, U Cannabinoids Screen NEGATIVE, Ur Drug Screen Comment 12/01/20 17:15: Hep Bs Antigen Non-Reactive, Hepatitis C Antibody Non-Reactive, HIV 1&2 Antibody Non-Reactive 12/01/20 17:15: HIV 1&2 Antibody Cancelled Micro: Microbiology 12/01/20 17:20 Nasal Secretion SARS-CoV-2 Antigen (Rapid) - Final Physical Exam Const alert and oriented x3 HEENT normocephalic Eyes PERRL Neck full ROM Resp normal respiratory effort GI soft to palpation GI Narrative: FF below U Assessment & Plan (1) Vaginal delivery: COMMENT: 39 SROM boy [place] PLAN: s/p PPD # 1 1. routine post delivery care 2. breast feeding- support given 3. rh positive 4. rubella immune
[2020-12-02] MEDS: Prenatal Vits Tablet 1 TABLET PO (09:33)
[2020-12-02] MEDS: 0.9% Saline Lock 10 ML Syringe IV (20:48)
[2020-12-03] VITALS (7 sets, daily range): BP systolic 117–130; BP diastolic 70–77; PULSE 53–81; RESP 16; TEMP 35.8–36.8; O2SAT 97–98
[2020-12-03] MEDS: Naproxen 500 MG Tablet PO ×2 (02:49→11:02)
[2020-12-03] MEDS: Acetaminophen 500 MG Tablet 1000 MG PO ×2 (02:49→09:45)
[2020-12-03] MEDS: Prenatal Vits Tablet 1 TABLET PO (09:47)
--- NOTE | 2020-12-03 12:57 | PN.OBGYN_ITS ---
Subjective Subjective Patient doing well without complaints. Tolerating PO. Ambulating and voiding without difficulty. Feeding well. Denies chest pain, shortness of breath, calf pain/swelling, fevers, chills, lightheadedness. Objective Data Objective Data Vital Signs: Vital Signs Temp Pulse Resp BP Pulse Ox 96.4 F L 61 16 130/77 H 97 12/03/20 12:39 12/03/20 12:40 12/03/20 12:37 12/03/20 12:40 12/03/20 02:53 Oxygen Delivery Method Room Air Weight: 159 lb 6 oz Body Mass Index (BMI) 29.1 Intake & Output: Intake and Output for Last 24 Hours 12/01/20 12/02/20 12/03/20 23:59 23:59 23:59 Intake Total 2033.33 / 2033.33 Output Total 400 / 400 925 / 925 Balance 1633.33 / 1633.33 -925 / -925 Lab / Micro Data Result Diagrams: 12/01/20 17:00 Micro: Microbiology 12/01/20 17:20 Nasal Secretion SARS-CoV-2 Antigen (Rapid) - Final Physical Exam Const alert and oriented x3 HEENT normocephalic Eyes PERRL Neck full ROM Resp normal respiratory effort GI soft to palpation GI Narrative: FF below U Assessment & Plan (1) Vaginal delivery: COMMENT: 39 SROM boy [place] SM PLAN: s/p PPD # 2 1. routine post delivery care 2. breast feeding- support given 3. rh positive 4. rubella immune 5. home today
--- NOTE | 2020-12-03 13:44 | NURSING ---
This salsa dance instructor reviewed the student Tereza Mccoy and it is complete. This instructor was present with all medication administration.
== END 2020-12-03 13:30 | disposition home or self-care (01) | DRG 807 ==
LOC: WPOUT 16:44 → WP 16:44
PROVIDERS: Admitting Provider Obstetrics & Gynecology; Referring Provider Obstetrics & Gynecology; Visit Provider Obstetrics & Gynecology
DX: O69.81X0 Labor and delivery complicated by cord around neck, without compression, not applicable or unspecified (principal); Z37.0 Single live birth; O70.0 First degree perineal laceration during delivery; Z3A.39 39 weeks gestation of pregnancy
CPT/HCPCS: 59025; 59050; 80307; 84112; 85025; 86703; 86780; 86803; 86850; 86900; 86901; 87340; 87426; 99218; J7120; A4216; G0378

== ENCOUNTER → 2024-01-15 | Outpatient (CLI) | payer OTHER, SELFPAY ==
[2024-01-15 16:02] LABS: Absolute Lymphocyte Count 1.81 X10^3/uL (0.83-4.51); Absolute Neutrophil Count 4.5 X10^3/uL (2.0-7.7); Basophil# 0.01 X10^3/uL; Basophil% 0.1 % (0-1); Eosinophil# 0.03 X10^3/uL; Eosinophils% 0.4 % (0-5); Hematocrit 34.9 % (37-47); Hemoglobin 12.1 g/dL (12.0-15.0); Lymphocyte # 1.81 X10^3/ul (0.83-4.51); Lymphocyte % 25.9 % (19-41); Mean Corp Hgb Conc 34.7 g/dL (32-36); Mean Corpuscular Hgb 32.2 pg (27.0-32.0); Mean Corpuscular Volume 92.8 fL (81-99); Mean Platelet Vol. 10.5 fl (6.2-12.0); Monocyte# 0.57 X10^3/uL; Monocyte% 8.2 % (0-10); NRBC Flagged by Analyzer 0 % (0-5); Neutrophil # 4.53 X10^3/uL (2.7-7.7); Platelet Count 215 K/mm3 (150-450); RBC Distribution Width CV 12.4 % (11.6-14.6); RBC Distribution Width SD 42.2 fl (35.1-43.9); Red Blood Count 3.76 M/mm3 (4.2-5.4)
[2024-01-15 17:01] LABS: HIV - WCH Non-Reactive (Nonreactive); Hepatitis B Surface Antigen Non-Reactive (Nonreactive); Hepatitis C Antibody Non-Reactive (Nonreactive); Rubella IgG Reactive (Nonreactive); Syphilis Antibodies Non-reactive
[2024-01-18 06:09] LABS: Chlamydia By Nucleic Acid AMP Negative (Negative); Gonococcus By Nucleic Acid AMP Negative (Negative)
[2024-01-18 18:34] LABS: HPV Reflexed? NOT INDICATED
== END | disposition home or self-care (01) ==
LOC: WOBLAB 15:12
PROVIDERS: Referring Provider Advanced Practice Midwife; Visit Provider Advanced Practice Midwife
DX: O09.90 Supervision of high risk pregnancy, unspecified, unspecified trimester (principal); Z3A.00 Weeks of gestation of pregnancy not specified
CPT/HCPCS: 36415; 85025; 86703; 86762; 86780; 86803; 86850; 86900; 86901; 87086; 87088; 87340; 87491; 87591; 88175; G0145

== ENCOUNTER → 2024-03-07 | Outpatient (CLI) | payer SELFPAY, OTHER ==
--- NOTE | 2024-03-07 12:20 | US_ITS ---
PROCEDURE: SECOND AND THIRD TRIMESTER OBSTETRICAL ULTRASOUND REASON FOR EXAM: Female, 28 years old. Evaluate . LMP: 10/19/2023 TECHNIQUE: Transabdominal and Transvaginal PRIOR ULTRASOUND: None. FINDINGS: There is a single intrauterine fetus. The fetus is in a vertex presentation. There is demonstrated cardiac activity with a heart rate of 155 bpm. There is a normal amniotic fluid volume. The largest amniotic fluid pocket measures 3.9 cm. The amniotic fluid index (JESUS) is not measured The placenta is posterior with a marginal previa. There are Grade 0 placental changes. The cervix measures 4 cm in length. The bilateral adnexal regions are unremarkable. BIOMETRY: BPD: 4.7 cm: 20 weeks, 1 days HC: 17.7 cm: 20 weeks, 1 days AC: 15.6 cm: 20 weeks, 5 days FL: 3.2 cm: 20 weeks, 1 days CI: 74.2% FL/BPD: 69.4% FL/HC: 18.3% FL/AC: 20.8% HC/AC: 1.1 age by current US: 20 weeks, 2 days. GARRICK by current US: 07/23/2024. Estimated weight: 353 grams, +/- 53 grams, 70 %. Age by LMP: 20 weeks, 0 days. GARRICK by LMP: 07/26/2023. ANATOMY: Cranium: Normal lateral ventricles measuring 5 mm. Normal choroid plexus. Normal cerebellum measuring 2.1 cm. Normal cisterna magna measuring 5 mm. Normal face, nose and lips. Chest: Normal 4-chamber heart. Abdomen/Pelvis: Normal diaphragm. Normal stomach. Normal abdominal wall. Normal cord insertion. Normal 3 vessel cord. Normal kidneys. Normal bladder. Spine: Normal cervical spine. Normal thoracic spine. Normal lumbar spine. Normal sacrum. Extremities: Normal bilateral upper extremities. Normal bilateral lower extremities. IMPRESSION: 1. Live intrauterine fetus in cephalic presentation with an estimated gestational age of 20 weeks and 2 days. 2. Posterior placenta with marginal previa. Electronically Signed: Charles Daniels MD at 15:12 EST , PROCEDURE: SECOND AND THIRD TRIMESTER OBSTETRICAL ULTRASOUND REASON FOR EXAM: Female, 28 years old. Evaluate . LMP: 10/19/2023 TECHNIQUE: Transabdominal and Transvaginal PRIOR ULTRASOUND: None. FINDINGS: There is a single intrauterine fetus. The fetus is in a vertex presentation. There is demonstrated cardiac activity with a heart rate of 155 bpm. There is a normal amniotic fluid volume. The largest amniotic fluid pocket measures 3.9 cm. The amniotic fluid index (JESUS) is not measured The placenta is posterior with a marginal previa. There are Grade 0 placental changes. The cervix measures 4 cm in length. The bilateral adnexal regions are unremarkable. BIOMETRY: BPD: 4.7 cm: 20 weeks, 1 days HC: 17.7 cm: 20 weeks, 1 days AC: 15.6 cm: 20 weeks, 5 days FL: 3.2 cm: 20 weeks, 1 days CI: 74.2% FL/BPD: 69.4% FL/HC: 18.3% FL/AC: 20.8% HC/AC: 1.1 age by current US: 20 weeks, 2 days. GARRICK by current US: 07/23/2024. Estimated weight: 353 grams, +/- 53 grams, 70 %. Age by LMP: 20 weeks, 0 days. GARRICK by LMP: 07/26/2023. ANATOMY: Cranium: Normal lateral ventricles measuring 5 mm. Normal choroid plexus. Normal cerebellum measuring 2.1 cm. Normal cisterna magna measuring 5 mm. Normal face, nose and lips. Chest: Normal 4-chamber heart. Abdomen/Pelvis: Normal diaphragm. Normal stomach. Normal abdominal wall. Normal cord insertion. Normal 3 vessel cord. Normal kidneys. Normal bladder. Spine: Normal cervical spine. Normal thoracic spine. Normal lumbar spine. Normal sacrum. Extremities: Normal bilateral upper extremities. Normal bilateral lower extremities. US/OB Anatomy w/ Transvaginal IMPRESSION: 1. Live intrauterine fetus in cephalic presentation with an estimated gestational age of 20 weeks and 2 days. Posterior placenta with marginal Electronically Signed: Charles Daniels MD at 15:12 EST ,
== END | disposition home or self-care (01) ==
LOC: US 12:20
PROVIDERS: PCP Nurse Practitioner Family; Referring Provider Advanced Practice Midwife; Visit Provider Advanced Practice Midwife
DX: O09.90 Supervision of high risk pregnancy, unspecified, unspecified trimester (principal); Z3A.00 Weeks of gestation of pregnancy not specified
CPT/HCPCS: 76805; 76817

== ENCOUNTER → 2024-04-10 | Outpatient (CLI) | payer OTHER, SELFPAY | END | disposition home or self-care (01) | LOC: LABSPEC 16:31 | PROVIDERS: PCP Nurse Practitioner Family; Referring Provider Advanced Practice Midwife; Visit Provider Advanced Practice Midwife | DX: R39.9 Unspecified symptoms and signs involving the genitourinary system (principal) | CPT/HCPCS: 87086; 87088 ==

== ENCOUNTER → 2024-05-02 | Outpatient (CLI) | payer OTHER, SELFPAY ==
--- NOTE | 2024-05-02 13:53 | US_ITS ---
PROCEDURE: ultrasound. REASON FOR EXAM: Placenta previa COMPARISON: 03/07/2024 FINDINGS The cervix is 4.1 cm in length, closed. Single live intrauterine gestation in breech presentation (at the end of the examination). Biparietal diameter 7.3 cm. Head circumference 27 cm. Abdominal circumference 24.8 cm. Femur length 5.4 cm. Estimated weight 1312 g +/- 197 g, at the 74th percentile. Maximum vertical amniotic fluid pocket 4.8 cm. heart rate 144 beats per minute. The placenta is posterior, without evidence of placenta previa. No retroplacental fluid collection. Limited anatomic evaluation shows no specific abnormality. US/OB Limited With Biometrics IMPRESSION: Single live intrauterine gestation. Estimated gestational age 28 weeks, 0 days . Estimated date of confinement 07/25/2024. No gross anomalies are demonstrated. No evidence of placenta previa. Normal-appearing amniotic fluid level. Reading Location: [facility]
[2024-05-02 13:57] LABS: Absolute Lymphocyte Count 2.07 X10^3/uL (0.83-4.51); Absolute Neutrophil Count 5.7 X10^3/uL (2.0-7.7); Basophil# 0.02 X10^3/uL; Basophil% 0.2 % (0-1); Eosinophil# 0.03 X10^3/uL; Eosinophils% 0.4 % (0-5); Hematocrit 30.4 % (37-47); Hemoglobin 10.3 g/dL (12.0-15.0); Lymphocyte # 2.07 X10^3/ul (0.83-4.51); Lymphocyte % 24.3 % (19-41); Mean Corp Hgb Conc 33.9 g/dL (32-36); Mean Corpuscular Hgb 32.2 pg (27.0-32.0); Mean Platelet Vol. 9.4 fl (6.2-12.0); Monocyte# 0.64 X10^3/uL; Monocyte% 7.5 % (0-10); NRBC Flagged by Analyzer 0 % (0-5); Neutrophil # 5.68 X10^3/uL (2.7-7.7); Neutrophil % 66.8 % (47-70); Platelet Count 260 K/mm3 (150-450); RBC Distribution Width CV 12.9 % (11.6-14.6); RBC Distribution Width SD 44.5 fl (35.1-43.9); White Blood Count 8.5 K/mm3 (4.4-11.0)
[2024-05-02 14:23] LABS: Glucose Challenge Gest 1H 50g 125 mg/dL (70-140)
[2024-05-02 15:41] LABS: HIV - WCH Non-Reactive (Nonreactive); Syphilis Antibodies Non-reactive
== END | disposition home or self-care (01) ==
LOC: US 13:52
PROVIDERS: PCP Nurse Practitioner Family; Referring Provider Advanced Practice Midwife; Visit Provider Advanced Practice Midwife
DX: O44.00 Complete placenta previa NOS or without hemorrhage, unspecified trimester (principal); Z3A.00 Weeks of gestation of pregnancy not specified; O09.92 Supervision of high risk pregnancy, unspecified, second trimester; Z13.1 Encounter for screening for diabetes mellitus
CPT/HCPCS: 36415; 76816; 82950; 85025; 86703; 86780

== ENCOUNTER → 2024-07-04 | Outpatient (CLI) | payer OTHER, SELFPAY | END | disposition home or self-care (01) | LOC: LABSPEC 16:47 | PROVIDERS: PCP Nurse Practitioner Family; Referring Provider Obstetrics & Gynecology; Visit Provider Obstetrics & Gynecology | DX: O09.92 Supervision of high risk pregnancy, unspecified, second trimester (principal); Z3A.00 Weeks of gestation of pregnancy not specified | CPT/HCPCS: 87081 ==

== ENCOUNTER 2024-07-17 09:42 | Outpatient (CLI) | payer OTHER, SELFPAY ==
[2024-07-17 09:55] VITALS: BP 119/70; PULSE 103
[2024-07-17 09:58] VITALS: RESP 16
[2024-07-17 10:00] VITALS: BMI 29.0
--- NOTE | 2024-07-17 10:03 | US_ITS ---
PROCEDURE: OB LIMITED WITH BIOMETRICS 07/17/2024 REASON FOR EXAM: GROWTH US AND JESUS TECHNIQUE: High resolution obstetric ultrasound performed using a 2D transducer. Standard views obtained, including biometry, anatomy survey, and Doppler studies. COMPARISON: Prior study dated May 02, 2024. FINDINGS Number: 1 Position: Vertex Placental Position: Anterior and fundal in location. Placental Abnormalities: No evidence of previa. DIMENSIONS: Biparietal Diameter: 9.5 cm: 38 weeks and 5 days: 78 percentile/ Head Circumference: 33.9 cm: 38 weeks and 6 days: 38 percentile/ Abdominal Circumference: 35.1 cm: 39 weeks and 0 days: 79 percentile/ Femur Length: 7.6 cm: 38 weeks and 4 days: 49th percentile/ ESTIMATED WEIGHT: 3652 g plus/-548 g ESTIMATED WEIGHT PERCENTILE (24+ weeks): 71st ESTIMATED GESTATIONAL AGE: Baseline: 38 weeks and 6 days By Ultrasound: 38 weeks and 5 days ESTIMATED DATE OF DELIVERY: Baseline: July 25, 2024 By Ultrasound: July 26, 2024 BIOPHYSICAL ASSESSMENT: Amniotic Fluid Volume: 3.1 cm Amniotic Fluid Index: 8.5 (8-24 cm normal range) Cardiac Motion: 146 beats per minute (average) Trunk and Limb Motion: Present. US/OB Limited With Biometrics IMPRESSION: Single live intrauterine gestation with a mean gestational age of 38 weeks and 5 days. Reading Location: [place] [id number]
[2024-07-17 10:46] LABS: ROM Internal Control Test YES-OK TO RESULT pt. (Internal QC); ROM Patient Test Negative (Negative); Record Kit Lot#, ROM+ K3358
--- NOTE | 2024-07-17 12:21 | OB.TRI.HP_ITS ---
HPI - General HPI Narrative KAUSHAL HUGGINS, is a 29 y/o@38 weeks 6 days who presents to l&d for low fundal height and possible loss of fluid. Rom plus and growth scans were ordered. Maternal Data Information GARRICK Calculator Estimated Delivery Date Method Current WG Current Estimate 07/25/24 LMP (Certain) 38w 6d Other Estimates 07/21/24 Ultrasound #1 39w 3d PFSH PFS Medical History Maternal anesthesia complication Home Medications ?Medication ?Instructions ?Recorded ?Last Taken ?Type multivit-min no.71-iron fum 28 cap PO 01/09/24 Unknown History mg-folate no.1 1 mg-dha 300 mg capsule (PNV-[place]) Allergy/AdvReac Type Severity Reaction Status Date / Time No Known Allergies Allergy Verified 07/17/24 09:59 Family History Father Club foot Brother Cleft lip Mother Cancer, Onset Age: 41 Pancreatic Surgical History [place] teeth extracted Social History adopted: No household members: spouse and children housing: house number of children: 2 current occupational status: unemployed current occupation: [employer] pets and animals: No history of recent travel: No sexually active: Yes Smoking Status: Never smoker alcohol intake: never substance use type: does not use well-balanced diet: daily or most days caffeine: No eating out: rarely or never during the past year weight has: remained stable what type of physical activity do you participate in: none rahul/anabaptist: Bahai seatbelt use: sometimes do you feel safe at home: Yes additional social history: [employer] History 3 Elective abortions 0 Hx Para 2 Spontaneous abortions 0 Hx # Term Pregnancies 2 Ectopic pregnancies 0 Hx # Pregnancies 0 Multiple births 0 # of living children 2 Past Pregnancies Del. Date Name GA/Weeks Outcome Route Bth Weight Gen Labor Lgth Anesthesia Del Locatn Provider FOB 01/15/19 Tan 39 live - full term vacuum Male epid ural [facility] JEREMIAH 12/01/20 Bahai 39 live - full term Male ep idural [facility] SM Delivery Date: 01/15/19 Last Updated by: Kemi Oswald VAVChau variables IAL Delivery Date: 12/01/20 Last Updated by: Kemi Oswald 1st degree laceration Visit Details Expected Delivery Route/Plan Labor Preferences- CB/BF classes: [] labor support person: [] labor intervention preferences: [] pain management options preferred: [] cut cord/dad catch: [] : [] PP control planned: [] discussed possible routes of delivery and associated risks: [] special requests: [] Plans Covid status: [] Flu vaccine: [] Tdap vaccine: [] Rhogam: [] LARC form signed: [] Problem list reviewed and updated with the most current plan of care details and appropriate orders placed. Relevant counseling for the gestational age provided. Continue routine care and follow up unless otherwise noted in visit notes/problem list details OB Flowsheet Initial Weight: 130 lb Date -?-?-?-?-?-?-?-?-?-?-?-?- EGA Weight BP Urine Prot -?-?-?-?-?-?-?-?-?-?-?-?- Glucose FHR FuHt Pres Dilation -?-?-?-?-?-?-?-?-?-?-?-?- Effaced St Visit Note 01/15/24 -?-?-?-?-?-?-?-?-?-?-?-?- 12w 4d 130 lb (+0 oz) 109/70 -?-?-?-?-?-?-?-?-?-?-?-?- 163 -?-?-?-?-?-?-?-?-?-?-?-?- KW- CRL cons wit h dates. declines nipt. desires appts [place] [facility] 03/07/24 -?-?-?-?-?-?-?-?-?-?-?-?- 20w 0d 134 lb 2 oz (+4 lb 2 oz) 106/72 Negative -?-?-?-?-?-?-?-?-?-?-?-?- Negative 152 -?-?-?-?-?-?-?-?-?-?-?-?- MH-No VB. Good F M. Denies concerns. Boy. anatomy US today 04/10/24 -?-?-?-?-?-?-?-?-?-?-?-?- 24w 6d 143 lb (+13 lb) 108/67 Trace -?-?-?-?-?-?-?-?-?-?-?-?- Negative 150 -?-?-?-?-?-?--?-?-?-?-?-?- KW- no vb/lof/ct x. good fm. has marginal placenta previa. 28 week US ordered and labs discussed. urine culture sent for occasional UTI sx 05/02/24 -?-?-?-?-?-?-?--?-?-?-?-?- 28w 0d 146 lb 4 oz (+16 lb 4 oz) 105/64 -?-?-?-?-?-?-?-?-?-?-?-?- 138 -?-?-?-?-?-?-?-?-?-?-?-?- JV- patient had repeat ultrasound today and results are pending. 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 05/22/24 -?-?-?-?-?-?-?-?-?-?-?-?- 30w 6d 147 lb 8 oz (+17 lb 8 oz) 100/65 Negative -?-?-?-?-?-?-?-?-?-?-?-?- Negative 132 30 -?-?-?-?-?-?-?-?-?-?-?-?- KW- no vb/lof/ct x. good fm. Previa resolved. considering tdap. 06/03/24 -?-?-?-?-?-?-?-?-?-?-?-?- 32w 4d 151 lb (+21 lb) 98/64 Negative -?-?-?-?-?-?-?-?-?-?-?-?- Negative 135 33 -?-?-?-?-?-?-?-?-?-?-?-?- SM- no vb lof go od fm no reuglar ctx discussed low back pain recommend chiropractor massage and belly band 06/26/24 -?-?-?-?-?-?-?-?-?-?-?-?- 35w 6d 157 lb 6 oz (+27 lb 6 oz) 109/77 Negative -?-?-?-?-?-?-?-?-?-?-?-?- Negative 145 36 -?-?-?-?-?-?-?-?-?-?-?-?- kw- no vb/lof/ct x. good fm. will need GBS next week. doing well with her back pain-seeing chiropractor. 07/04/24 -?-?-?-?-?-?-?-?-?-?-?-?- 37w 0d 161 lb (+31 lb) 123/78 Negative -?-?-?-?-?-?-?-?-?-?-?-?- Negative 141 37.5 Cephalic 1 -?-?-?-?-?-?-?-?-?-?-?-?- 50 -2 JV- GBS co llected. no lof, vaginal bleeding, or decreased FM. 07/10/24 -?-?-?-?-?-?-?-?-?-?-?-?- 37w 6d 161 lb (+31 lb) 113/76 Negative -?-?-?-?-?-?-?-?-?-?-?-?- Negative 135 39 Cephalic 2 -?-?-?-?-?-?-?-?-?-?-?-?- 60 -2 KW- no vb/ lof/reg contractions. good fm. requesting MS at 39 weeks 07/17/24 -?-?-?-?-?-?-?-?-?-?-?-?- 38w 6d 160 lb 2 oz (+30 lb 2 oz) 112/75 Trace -?-?-?-?-?-?-?-?-?-?-?-?- Negative 130 36 Cephalic 3 -?-?-?-?-?-?-?-?-?-?-?-?- 60 -2 KW- no vb/ lof/ctx. good fm. To WP for US for decreased fundal height. possibly had some leaking of fluid on thurs but thought it was increased discharge ROS Constitutional Constitutional: Reports systems reviewed and no addt'l complaints, except as documented Gastrointestinal Gastrointestinal: Denies bloating, constipation, cramping, diarrhea, nausea or vomiting Genitourinary Genitourinary: Reports other Details: Denies vaginal odor, vaginal bleeding, or vaginal discharge ; Denies difficulty urinating or flank pain Physical Exam HEENT normocephalic Resp normal respiratory effort and normal air movement no CVA tenderness Extremity normal to inspection General Extremity: edema bilateral (trace ) NST FHR Rate Baby A Baseline: 140 Variability:: Moderate Accelerations:: 15 x 15 Decelerations:: None NST Reactive:: Yes FHR Category:: Category I Assessment & Plan (1) Fundal height low for dates: (2) Mild anemia: COMMENT: OTC iron supplement daily, opposite PNV (3) UTI symptoms: COMMENT: Culture negative (4) Placenta previa: COMMENT: resolved. (5) Maternal anesthesia complication: COMMENT: last difficulty breathing (6) Supervision of high-risk : QUALIFIERS: Trimester: second trimester Qualified Code(s): O09.92 - Supervision of high risk , unspecified, second trimester COMMENT: GBS NEG. PRR , GARRICK 07/25/24, Danis Henderson, Jonas (7) : QUALIFIERS: Weeks of gestation: 38 weeks Qualified Code(s): Z3A.38 - 38 weeks gestation of COMMENT: normal anatomy, declines NIPT & Carrier testing PLAN: Plan rom plus was negative and the growth scan and JESUS are normal ok to dc to home Charges/Coding Multi Select Codes Visit Charges Office Visit/Consults: 11073 OV L3 Est 20min Urinary/Genital Urinary/Genital CPT Codes: 78744-35 non-stress test Interp
--- NOTE | 2024-07-17 12:21 | OB.TRI.NOTE ---
HPI - General HPI Narrative KAUSHAL HUGGINS, is a 29 y/o@38 weeks 6 days who presents to l&d for low fundal height and possible loss of fluid. Rom plus and growth scans were ordered. Maternal Data Information GARRICK Calculator Estimated Delivery Date Method Current WG Current Estimate 07/25/24 LMP (Certain) 38w 6d Other Estimates 07/21/24 Ultrasound #1 39w 3d PFSH PFSH Medical History Maternal anesthesia complication Home Medications ?Medication ?Instructions ?Recorded ?Last Taken ?Type multivit-min no.71-iron fum 28 cap PO 01/09/24 Unknown History mg-folate no.1 1 mg-dha 300 mg capsule (PNV-[place]) Allergy/AdvReac Type Severity Reaction Status Date / Time No Known Allergies Allergy Verified 07/17/24 09:59 Family History Father Club foot Brother Cleft lip Mother Cancer, Onset Age: 41 Pancreatic Surgical History [place] teeth extracted Social History adopted: No household members: spouse and children housing: house number of children: 2 current occupational status: unemployed current occupation: [employer] pets and animals: No history of recent travel: No sexually active: Yes Smoking Status: Never smoker alcohol intake: never substance use type: does not use well-balanced diet: daily or most days caffeine: No eating out: rarely or never during the past year weight has: remained stable what type of physical activity do you participate in: none rahul/mosque: Episcopalian seatbelt use: sometimes do you feel safe at home: Yes additional social history: [employer] History 3 Elective abortions 0 Hx Para 2 Spontaneous abortions 0 Hx # Term Pregnancies 2 Ectopic pregnancies 0 Hx # Pregnancies 0 Multiple births 0 # of living children 2 Past Pregnancies Del. Date Name GA/Weeks Outcome Route Bth Weight Gen Labor Lgth Anesthesia Del Locatn Provider FOB 01/15/19 Dominick 39 live - full term vacuum Male epidural [facility] JEREMIAH 12/01/20 Episcopalian 39 live - full term Male epidural [facility] SM Delivery Date: 01/15/19 Last Updated by: Kemi Oswald VAVD variables IAL Delivery Date: 12/01/20 Last Updated by: Kemi Oswald 1st degree laceration Visit Details Expected Delivery Route/Plan Labor Preferences- CB/BF classes: [] labor support person: [] labor intervention preferences: [] pain management options preferred: [] cut cord/dad catch: [] : [] PP control planned: [] discussed possible routes of delivery and associated risks: [] special requests: [] Plans Covid status: [] Flu vaccine: [] Tdap vaccine: [] Rhogam: [] LARC form signed: [] Problem list reviewed and updated with the most current plan of care details and appropriate orders placed. Relevant counseling for the gestational age provided. Continue routine care and follow up unless otherwise noted in visit notes/problem list details OB Flowsheet Initial Weight: 130 lb Date <del>?</del> EGA Weight BP Urine Prot <del>?</del> Glucose FHR FuHt Pres Dilation <del>?</del> Effaced St Visit Note 01/15/24 <del>?</del> 12w 4d 130 lb (+0 oz) 109/70 <del>?</del> 163 <del>?</del> KW- CRL cons with dates. declines nipt. [place] appts [facility] 03/07/24 <del>?</del> 20w 0d 134 lb 2 oz (+4 lb 2 oz) 106/72 Negative <del>?</del> Negative 152 <del>?</del> MH-No VB. Good FM. Denies concerns. Boy. anatomy US today 04/10/24 <del>?</del> 24w 6d 143 lb (+13 lb) 108/67 Trace <del>?</del> Negative 150 <del>?</del> KW- no vb/lof/ctx. good fm. has marginal placenta previa. 28 week US ordered and labs discussed. urine culture sent for occasional UTI sx 05/02/24 <del>?</del> 28w 0d 146 lb 4 oz (+16 lb 4 oz) 105/64 <del>?</del> 138 <del>?</del> JV- patient had repeat ultrasound today and results are pending. 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 05/22/24 <del>?</del> 30w 6d 147 lb 8 oz (+17 lb 8 oz) 100/65 Negative <del>?</del> Negative 132 30 <del>?</del> KW- no vb/lof/ctx. good fm. Previa resolved. considering tdap. 06/03/24 <del>?</del> 32w 4d 151 lb (+21 lb) 98/64 Negative <del>?</del> Negative 135 33 <del>?</del> SM- no vb lof good fm no reuglar ctx discussed low back pain recommend chiropractor massage and belly band 06/26/24 <del>?</del> 35w 6d 157 lb 6 oz (+27 lb 6 oz) 109/77 Negative <del>?</del> Negative 145 36 <del>?</del> kw- no vb/lof/ctx. good fm. will need GBS next week. doing well with her back pain-seeing chiropractor. 07/04/24 <del>?</del> 37w 0d 161 lb (+31 lb) 123/78 Negative <del>?</del> Negative 141 37.5 Cephalic 1 <del>?</del> 50 -2 JV- GBS collected. no lof, vaginal bleeding, or decreased FM. 07/10/24 <del>?</del> 37w 6d 161 lb (+31 lb) 113/76 Negative <del>?</del> Negative 135 39 Cephalic 2 <del>?</del> 60 -2 KW- no vb/lof/reg contractions. good fm. requesting MS at 39 weeks 07/17/24 <del>?</del> 38w 6d 160 lb 2 oz (+30 lb 2 oz) 112/75 Trace <del>?</del> Negative 130 36 Cephalic 3 <del>?</del> 60 -2 KW- no vb/lof/ctx. good fm. To WP for US for decreased fundal height. possibly had some leaking of fluid on th but thought it was increased discharge ROS Constitutional Constitutional: Reports systems reviewed and no addt'l complaints, except as documented Gastrointestinal Gastrointestinal: Denies bloating, constipation, cramping, diarrhea, nausea or vomiting Genitourinary Genitourinary: Reports other Details: Denies vaginal odor, vaginal bleeding, or vaginal discharge ; Denies difficulty urinating or flank pain Physical Exam HEENT normocephalic Resp normal respiratory effort and normal air movement no CVA tenderness Extremity normal to inspection General Extremity: edema bilateral (trace ) NST FHR Rate Baby A Baseline: 140 Variability:: Moderate Accelerations:: 15 x 15 Decelerations:: None NST Reactive:: Yes FHR Category:: Category I Assessment & Plan (1) Fundal height low for dates: (2) Mild anemia: COMMENT: OTC iron supplement daily, opposite PNV (3) UTI symptoms: COMMENT: Culture negative (4) Placenta previa: COMMENT: resolved. (5) Maternal anesthesia complication: COMMENT: last difficulty breathing (6) Supervision of high-risk : QUALIFIERS: Trimester: second trimester Qualified Code(s): O09.92 - Supervision of high risk , unspecified, second trimester COMMENT: GBS NEG. PRR , GARRICK 07/25/24, Danis Henderson, Jonas (7) : QUALIFIERS: Weeks of gestation: 38 weeks Qualified Code(s): Z3A.38 - 38 weeks gestation of COMMENT: normal anatomy, declines NIPT & Carrier testing PLAN: Plan rom plus was negative and the growth scan and JESUS are normal ok to dc to home Charges/Coding Multi Select Codes Visit Charges Office Visit/Consults: 17412 OV L3 Est 20min Urinary/Genital Urinary/Genital CPT Codes: 18408-95 non-stress test Interp
== END 2024-07-17 12:20 | disposition home or self-care (01) ==
LOC: WPOUT 09:44 → WP 09:45
PROVIDERS: Advanced Practice Midwife; PCP Nurse Practitioner Family; Referring Provider Obstetrics & Gynecology; Visit Provider Obstetrics & Gynecology
DX: O26.849 Uterine size-date discrepancy, unspecified trimester (principal); Z3A.38 38 weeks gestation of pregnancy
CPT/HCPCS: 59025; 59050; 76816; 84112; 99221; G0378

== ENCOUNTER 2024-07-23 02:32 | Inpatient (IN) | payer SELFPAY, OTHER ==
[2024-07-23] VITALS (18 sets, daily range): BP systolic 105–132; BP diastolic 55–85; PULSE 62–105; RESP 15–16; TEMP 36.2–36.9; O2SAT 97–99; BMI 29.6
[2024-07-23] MEDS: Lactated Ringers 1,000 ML 50 ML IV (02:45)
[2024-07-23 03:30] LABS: Absolute Lymphocyte Count 2.71 X10^3/uL (0.83-4.51); Absolute Neutrophil Count 6.8 X10^3/uL (2.0-7.7); Basophil# 0.03 X10^3/uL; Basophil% 0.3 % (0-1); Eosinophil# 0.04 X10^3/uL; Eosinophils% 0.4 % (0-5); Hematocrit 33.3 % (37-47); Hemoglobin 11.2 g/dL (12.0-15.0); Lymphocyte # 2.71 X10^3/ul (0.83-4.51); Lymphocyte % 25.4 % (19-41); Mean Corp Hgb Conc 33.6 g/dL (32-36); Mean Corpuscular Hgb 32.2 pg (27.0-32.0); Mean Corpuscular Volume 95.7 fL (81-99); Mean Platelet Vol. 10.4 fl (6.2-12.0); Monocyte# 1.04 X10^3/uL; Monocyte% 9.8 % (0-10); NRBC Flagged by Analyzer 0 % (0-5); Neutrophil # 6.78 X10^3/uL (2.7-7.7); Neutrophil % 63.5 % (47-70); Platelet Count 213 K/mm3 (150-450); RBC Distribution Width CV 13.2 % (11.6-14.6); RBC Distribution Width SD 45.8 fl (35.1-43.9); Red Blood Count 3.48 M/mm3 (4.2-5.4); White Blood Count 10.7 K/mm3 (4.4-11.0)
[2024-07-23 03:51] LABS: Syphilis Antibodies Nonreactive (Nonreactive)
--- NOTE | 2024-07-23 07:24 | HP.PCM.OB_ITS ---
HPI - General General Date of Admission: 07/23/24 Date of Service: 07/23/24 HPI Narrative KAUSHAL HUGGINS, is a 29 F 39.5 weeks who presents to unit in active labor. cervical exam from 5-8cm. admitted for labor Maternal Data Information GARRICK Calculator Estimated Delivery Date Method Current WG Current Estimate 07/25/24 LMP (Certain) 39w 5d Other Estimates 07/21/24 Ultrasound #1 40w 2d Final GARRICK Source: US >20 weeks Gestational age: 39.5 PFSH PFSH Medical History Maternal anesthesia complication Allergy/AdvReac Type Severity Reaction Status Date / Time No Known Allergies Allergy Verified 07/23/24 02:21 Family History Father Club foot Brother Cleft lip Mother Cancer, Onset Age: 41 Pancreatic Surgical History [place] teeth extracted Social History adopted: No household members: spouse and children housing: house number of children: 2 current occupational status: unemployed current occupation: [employer] pets and animals: No history of recent travel: No sexually active: Yes Smoking Status: Never smoker alcohol intake: never substance use type: does not use well-balanced diet: daily or most days caffeine: No eating out: rarely or never during the past year weight has: remained stable what type of physical activity do you participate in: none rahul/nondenominational: Jew seatbelt use: sometimes do you feel safe at home: Yes additional social history: [employer] History 3 Elective abortions 0 Hx Para 2 Spontaneous abortions 0 Hx # Term Pregnancies 2 Ectopic pregnancies 0 Hx # Pregnancies 0 Multiple births 0 # of living children 2 Past Pregnancies Del. Date Name GA/Weeks Outcome Route Bth Weight Gen Labor Lgth Anesthesia Del Locatn Provider FOB 01/15/19 Tan 39 live - full term vacuum Male epid ural [facility] JEREMIAH 12/01/20 Jew 39 live - full term Male ep idural [facility] SM Delivery Date: 01/15/19 Last Updated by: Kemi Oswald VAVD variables IAL Delivery Date: 12/01/20 Last Updated by: Kemi Oswald 1st degree laceration Visit Details Expected Delivery Route/Plan Labor Preferences- CB/BF classes: [] labor support person: [] labor intervention preferences: [] pain management options preferred: [] cut cord/dad catch: [] : [] PP control planned: [] discussed possible routes of delivery and associated risks: [] special requests: [] Plans Covid status: [] Flu vaccine: [] Tdap vaccine: [] Rhogam: [] LARC form signed: [] Problem list reviewed and updated with the most current plan of care details and appropriate orders placed. Relevant counseling for the gestational age provided. Continue routine care and follow up unless otherwise noted in visit notes/problem list details OB Flowsheet Initial Weight: 130 lb Date -?-?-?-?-?-?-?-?-?-?-?-?- EGA Weight BP Urine Prot -?-?-?-?-?-?-?-?-?-?-?-?- Glucose FHR FuHt Pres Dilation -?-?-?-?-?-?-?-?-?-?-?-?- Effaced St Visit Note 01/15/24 -?-?-?-?-?-?-?-?-?-?-?-?- 12w 4d 130 lb (+0 oz) 109/70 -?-?-?-?-?-?-?-?-?-?-?-?- 163 -?-?-?-?-?-?-?-?-?-?-?-?- KW- CRL cons wit h dates. declines nipt. [place] appts [place] [facility] 03/07/24 -?-?-?-?-?-?-?-?-?-?-?-?- 20w 0d 134 lb 2 oz (+4 lb 2 oz) 106/72 Negative -?-?-?-?-?-?-?-?-?-?-?-?- Negative 152 -?-?-?-?-?-?-?-?-?-?-?-?- MH-No VB. Breezy Cook Denies concerns. Boy. anatomy US today 04/10/24 -?-?-?-?-?-?-?-?-?-?-?-?- 24w 6d 143 lb (+13 lb) 108/67 Trace -?-?-?-?-?-?-?-?-?-?-?-?- Negative 150 -?-?-?-?-?-?-?-?-?-?-?-?- KW- no vb/lof/ct x. good fm. has marginal placenta previa. 28 week US ordered and labs discussed. urine culture sent for occasional UTI sx 05/02/24 -?-?-?-?-?-?-?-?-?-?-?-?- 28w 0d 146 lb 4 oz (+16 lb 4 oz) 105/64 -?-?-?-?-?-?-?-?-?-?-?-?- 138 -?-?-?-?-?-?-?-?-?-?-?-?- JV- patient had repeat ultrasound today and results are pending. 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 05/22/24 -?-?-?-?-?-?-?-?-?-?-?-?- 30w 6d 147 lb 8 oz (+17 lb 8 oz) 100/65 Negative -?-?-?-?-?-?-?-?-?-?-?-?- Negative 132 30 -?-?-?-?-?-?-?-?-?-?-?-?- KW- no vb/lof/ct x. good fm. Previa resolved. considering tdap. 06/03/24 -?-?-?-?-?-?-?-?-?-?-?-?- 32w 4d 151 lb (+21 lb) 98/64 Negative -?-?-?-?-?-?-?-?-?-?-?-?- Negative 135 33 -?--?-?-?-?-?-?-?-?-?-?-?- SM- no vb lof go od fm no reuglar ctx discussed low back pain recommend chiropractor massage and belly band 06/26/24 -?-?-?-?-?-?-?-?-?-?-?-?- 35w 6d 157 lb 6 oz (+27 lb 6 oz) 109/77 Negative -?-?-?-?-?-?-?-?-?-?-?-?- Negative 145 36 -?-?-?-?-?-?-?-?-?-?-?-?- kw- no vb/lof/ct x. good fm. will need GBS next week. doing well with her back pain-seeing chiropractor. 07/04/24 -?-?-?-?-?-?-?-?-?-?-?-?- 37w 0d 161 lb (+31 lb) 123/78 Negative -?-?-?-?-?-?-?-?-?-?-?-?- Negative 141 37.5 Cephalic 1 -?-?-?-?-?-?-?-?-?-?-?-?- 50 -2 JV- GBS co llected. no lof, vaginal bleeding, or decreased FM. 07/10/24 -?-?-?-?-?-?-?-?-?-?-?-?- 37w 6d 161 lb (+31 lb) 113/76 Negative -?-?-?-?-?-?-?-?-?-?-?-?- Negative 135 39 Cephalic 2 -?-?-?-?-?-?-?-?-?-?-?-?- 60 -2 KW- no vb/ lof/reg contractions. good fm. requesting MS at 39 weeks 07/17/24 -?-?-?-?-?-?-?-?-?-?-?-?- 38w 6d 160 lb 2 oz (+30 lb 2 oz) 112/75 Trace -?-?-?-?-?-?-?-?-?-?-?-?- Negative 130 36 Cephalic 3 -?-?-?-?-?-?-?-?-?-?-?-?- 60 -2 KW- no vb/ lof/ctx. good fm. To WP for US for decreased fundal height. possibly had some leaking of fluid on th but thought it was increased discharge 07/22/24 -?-?-?-?-?--?-?-?-?-?-?-?- 39w 4d 162 lb 8 oz (+32 lb 8 oz) 116/77 Trace -?-?-?-?-?-?-?-?-?-?-?-?- Negative 125 39 Cephalic 4 .5 -?-?-?-?--?-?-?-?-?-?-?-?- 70 -2 KW- no vb/ lof. Had regular contractions over the weekend. labor precautions reviewed. NST FHR Rate Baby A Baseline: 125 Variability:: Moderate Accelerations:: 15 x 15 Decelerations:: Early and Variable NST Reactive:: Yes FHR Category:: Category I Uterine Activity:: irregular ROS Constitutional Constitutional: Denies change in weight, fatigue, fever(s), headache(s), poor appetite or weakness Eyes Eyes: Denies blurry vision, change in vision, floaters, seeing flashes or spots in vision ENT HEENT: Denies dizziness, headache(s), loss taste/smell or sore throat Cardiovascular Cardiovascular: Denies chest pain, dizziness, dyspnea, irregular heart rhythm, lightheadedness, palpitations or rapid heart rate Respiratory/Chest Respiratory/Chest: Denies change in mental status, chest tightness, cough, dyspnea or breast pain Gastrointestinal Gastrointestinal: Denies anorexia, chewing difficulty, constipation, diarrhea or weight changes Genitourinary Genitourinary: Denies difficulty urinating, dysuria, flank pain, genital pain, urinary frequency or urinary urgency Musculoskeletal Musculoskeletal: Denies back pain, difficulty walking, extremity pain, joint pain, muscle cramps or muscle weakness Integumentary Integumentary: Denies lesions or unusual bruising Neurologic Neurologic: Denies abnormal movements, abnormal speech, dizziness, numbness, seizure-like activity, syncope or weakness Psychiatric Psychiatric: Denies behavioral changes, change in appetite, confusion, depression, homicidal ideation, suicidal ideation or suicidal thoughts Endocrine Endocrinology: Denies excessive sweating, polydipsia or polyuria Hematologic/Lymphatic Hematologic/Lymphatic: Denies anemia Allergic/Immunologic Allergic/Immunologic: Denies itchy eyes, lip swelling, throat swelling, tongue swelling or wheezing Vital Signs Vital Signs Vital Signs: 07/23/24 02:07 07/23/24 02:07 07/23/24 05:34 Temperature Pulse Rate 82 Respiratory Rate Blood Pressure 118/78 114/62 BP Systolic 118 114 BP Diastolic 78 62 Pulse Ox 07/23/24 05:34 07/23/24 05:34 07/23/24 05:34 Temperature Pulse Rate 77 Respiratory Rate 16 Blood Pressure BP Systolic BP Diastolic Pulse Ox 98 07/23/24 05:34 Temperature 97.5 F L Pulse Rate Respiratory Rate Blood Pressure BP Systolic BP Diastolic Pulse Ox Weight Weight: 162 lb Body Mass Index (BMI) 29.6 Physical Exam Const alert, oriented x3 and no apparent distress General Appearance: cooperative Orientation / Consciousness: awake HEENT normocephalic Neck full ROM Lymph Lymphatic: no lymphadenopathy noted Chest inspection of chest normal Resp normal respiratory effort and normal air movement Effort and Inspection: able to speak in complete sentences and symmetric chest movement GI soft to palpation and non-tender Inspection: gravid Palpation: soft; Negative for tender external exam normal Back/Spine normal to inspection Extremity normal to inspection and full ROM Skin no rashes or lesions noted Psych mental status grossly normal Appearance: grossly normal Speech: normal speech Labs Labs Labs: Blood Type O POSITIVE Antibody Screen NEGATIVE Hct 33.3 % (37-47) L Hgb 11.2 g/dL (12.0-15.0) L Obstetrics Ultrasound Syphilis Total Ab Nonreactive (Nonreactive) Rubella IgG Antibody Reactive (Nonreactive) Hep Bs Antigen Non-Reactive (Nonreactive) Hepatitis C Antibody Non-Reactive (Nonreactive) Chlamydia DNA ([facility]) Negative (Negative) N.gonorrhoeae DNA ([facility]) Negative (Negative) HIV 1&2 Antibody Non-Reactive (Nonreactive) Glucose 1 Hr 50 gm 125 mg/dL (70-140) Rhogam given: No Assessment & Plan (1) Active labor: PLAN: Patient presents IAL, plan expectant management for , pitocin/AROM PRN if needed. Pain management: plans no epidural. GBS neg. Management of any complications: see list I have reviewed the [facility] and made any clinically relevant updates. Dr Jarrett aware of assessment, plan and admission and agrees with above (2) Fundal height low for dates: (3) Mild anemia: COMMENT: OTC iron supplement daily, opposite PNV (4) UTI symptoms: COMMENT: Culture negative (5) Placenta previa: COMMENT: resolved. (6) Maternal anesthesia complication: COMMENT: last difficulty breathing (7) Supervision of high-risk : QUALIFIERS: Trimester: second trimester Qualified Code(s): O09.92 - Supervision of high risk , unspecified, second trimester COMMENT: GBS NEG. PRR , GARRICK 07/25/24, Danis Henderson, Jonas (8) : QUALIFIERS: Weeks of gestation: 40 weeks Qualified Code(s): Z3A.40 - 40 weeks gestation of COMMENT: normal anatomy, declines NIPT & Carrier testing Charges/Coding Multi Select Codes Urinary/Genital Urinary/Genital CPT Codes: No Charge
[2024-07-23] MEDS: Oxytocin 15 Units/NS 250ml 15 UNITS/250 ML IV.SOLN 2 UNITS IV (08:25)
[2024-07-23] MEDS: Lactated Ringers 1,000 ML 999 ML IV (10:05)
[2024-07-23] MEDS: Lidocaine 1% (20 ml mdv) 20 ML Vial INFILT (10:37)
--- NOTE | 2024-07-23 10:52 | EX.PCM.OBVAG ---
Assessment & Plan (1) Vaginal delivery: COMMENT: 39 active labor la Melgar (2) : QUALIFIERS: Weeks of gestation: 40 weeks Qualified Code(s): Z3A.40 - 40 weeks gestation of COMMENT: normal anatomy, declines NIPT & Carrier testing (3) Supervision of high-risk : QUALIFIERS: Trimester: second trimester Qualified Code(s): O09.92 - Supervision of high risk , unspecified, second trimester COMMENT: GBS NEG. PRR , GARRICK 07/25/24, Danis Henderson, Jonas (4) Maternal anesthesia complication: COMMENT: last difficulty breathing (5) Placenta previa: COMMENT: resolved. (6) UTI symptoms: COMMENT: Culture negative (7) Mild anemia: COMMENT: OTC iron supplement daily, opposite PNV (8) Fundal height low for dates: (9) Active labor: Maternal Data Information GARRICK Calculator Estimated Delivery Date Method Current WG Current Estimate 07/25/24 LMP (Certain) 39w 5d Other Estimates 07/21/24 Ultrasound #1 40w 2d Final GARRICK: 07/25/24 Final GARRICK Source: US >20 weeks Gestational age: 39.5 Vaginal Delivery Maternal Presentation Maternal Presentation: Active Labor Maternal Presentation: Presented to unit for active labor at 39.5 weeks Vaginal Delivery Information Procedure Performed: Spontaneous Vaginal Delivery Surgeon/Practitioner: Hazel Ospina Date of Procedure: 07/23/24 Pre-Procedure Diagnosis: see problem list Post-Procedure Diagnosis: same Type of anesthesia: None Estimated Blood Loss: 100 Findings Description of procedure: Progressed well to 10cm dilated and made steady progress with effective maternal pushing. Delivered the head in SHASHI presentation. The head was delivered atraumatically and a loose nuchal cord was identified and was easily reduced over the 's head. The anterior and posterior shoulders delivered without complication followed by the rest of the and the was placed on the maternal abdomen. Delayed cord clamping was employed for approximately 3 minutes. Cord was clamped and cut and handed over to awaiting nursery nurse. gentle traction was applied to the cord and the placenta delivered spontaneously. Immediately following, it was noted to be intact with a 3 vessel cord. Uterine bleeding stable. The perineum and vagina were inspected and noted to have a second degree perineal laceration and a right labial laceration which was repaired with 3-0 Vicryl in the usual fashion. EBL was 100cc. Patient and infant tolerated delivery well. Apgars 8/9. Dr Jarrett notified of vaginal delivery and orders reviewed. Physician agrees with current plan of care. 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
--- NOTE | 2024-07-23 10:56 | DCINST_ITS ---
Discharge Instructions Diet Discharge Diet: No restrictions DC O2, CPAP, BIPAP needs Home O2 Discharge instructions: No Dressing / Incision Discharge Activity: Return to Normal Activity May resume sexual activity in: 6-8 weeks Dressing / Incision Call your doctor if you observe: Fever of 101 or Higher, Coldness, Increased Pain, Numbness or Tingling, Change in Color, Inability to urinate, Inability to have a bowel movement, Using more than 1 pad per hour, Shortness of breath, Dizziness, Fainting spells, Swelling in the ankles, Chest pain, Increased p alpitations (irregular heartbeat), Calf discomfort and Uncontrolled pain Follow Up Care Please Follow Up With: Hazel Ospina CNM When: Please call the office to schedule your follow up appointment in 6 weeks. If you had high blood pressure please call to schedule an appointment in 2 weeks. Test Results: Test results from this visit will be discussed in further detail at your follow- up appointment, if applicable. 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
[2024-07-23] MEDS: Acetaminophen 500 MG Tablet PO (11:01)
[2024-07-23] MEDS: Oxytocin 15 Units/NS 250ml 15 UNITS/250 ML IV.SOLN 83 UNITS IV (11:07)
[2024-07-23] MEDS: Acetaminophen 500 MG Tablet 1000 MG PO (21:47)
[2024-07-24 00:12] VITALS: BP 110/73; PULSE 79; RESP 14; TEMP 36.1
[2024-07-24 03:35] VITALS: BP 112/79; PULSE 64; RESP 16; TEMP 36
[2024-07-24] MEDS: Ibuprofen 600 MG Tablet PO (03:41)
--- NOTE | 2024-07-24 07:55 | PCM.PN.OB ---
Subjective Subjective Patient doing well without complaints. Tolerating PO. Ambulating and voiding without difficulty. Feeding well. Denies chest pain, shortness of breath, calf pain/swelling, fevers, chills, lightheadedness. Objective Data Objective Data Vital Signs: Vital Signs Temp Pulse Resp BP Pulse Ox O2 Del Method 96.8 F L 64 16 112/79 97 Room Air 07/24/24 03:35 07/24/24 03:35 07/24/24 03:35 07/24/24 03:35 07/23/24 21:29 07/24/24 03:35 Oxygen Delivery Method Room Air Weight: 162 lb Body Mass Index (BMI) 29.6 Intake & Output: Intake and Output for Last 24 Hours 07/22/24 07/23/24 07/24/24 23:59 23:59 23:59 Intake Total 1125.13 / 1125.13 Output Total 400 / 400 Balance 725.13 / 725.13 Lab / Micro Data 07/23/24 03:15 Physical Exam Const alert and oriented x3 HEENT normocephalic Eyes PERRL Neck full ROM Resp normal respiratory effort GI soft to palpation GI Narrative: FF below U Assessment & Plan (1) Spontaneous vaginal delivery: COMMENT: 07/23/24 Ramón MELLO PLAN: Plan s/p PPD # 1 1. routine post delivery care 2. breast feeding- support given 3. rh positive 4. rubella immune 5. home today
[2024-07-24 08:15] VITALS: BP 107/65; PULSE 74; RESP 16; TEMP 36.2; O2SAT 98
[2024-07-24 12:46] VITALS: BP 109/52; PULSE 75; RESP 16; TEMP 36.5; O2SAT 99
== END 2024-07-24 13:30 | disposition home or self-care (01) | DRG 807 ==
LOC: WP 03:12
PROVIDERS: Obstetrics & Gynecology; Admitting Provider Advanced Practice Midwife; PCP Nurse Practitioner Family; Referring Provider Advanced Practice Midwife; Visit Provider Advanced Practice Midwife
DX: O26.843 Uterine size-date discrepancy, third trimester (principal); Z37.0 Single live birth; O69.81X0 Labor and delivery complicated by cord around neck, without compression, not applicable or unspecified; O70.1 Second degree perineal laceration during delivery; O99.02 Anemia complicating childbirth; Z3A.39 39 weeks gestation of pregnancy; Z87.59 Personal history of other complications of pregnancy, childbirth and the puerperium
CPT/HCPCS: 59025; 59050; 85025; 86780; 86850; 86900; 86901; 99221; G0378